=== PATIENT | male | born 1950 | race African-American/Black ===

== ENCOUNTER 2017-10-31 09:09 | Inpatient (IN) | payer MEDICARE ==
[2017-10-31] MEDS ORDERED: Heparin 10,000 UNITS/1 ML VIAL ONE (09:22)
[2017-10-31 09:35] LABS: #Eosinphils 0.1 thou/uL (0.0-0.7); #Lymphocytes 2.1 thou/uL (1.20-3.40); #Monocytes 0.8 thou/uL (0.11-0.59); #Neutrophils 4.9 thou/uL (1.40-6.50); %Basophils 0.4 % (0.0-1.0); %Eosinophils 0.8 % (0.0-10.0); %Lymphocytes 26.6 % (21.0-51.0); %Monocytes 10.2 % (0.0-10.0); Hemoglobin 10.1 g/dL (14.0-18.0); Mean Corpuscular HGB CONC 31.5 g/dL (32.0-36.0); Mean Corpuscular Hemoglobin 30.9 pg (27.0-31.0); Mean Corpuscular Volume 98.2 fL (78.0-98.0); Mean Platelet Volume 8.3 fL (7.4-10.4); Platelet Count 178 thou/uL (130-400); Red Blood Cell (RBC) Count 3.27 mill/uL (4.70-6.10); White Blood Cell (WBC) Count 7.9 thou/uL (4.8-10.8)
[2017-10-31] MEDS ORDERED: Midazolam HCl 2 mg/2 ml Vial ONE (09:46)
[2017-10-31 09:49] LABS: ALT (SGPT) Less than 7 U/L (8-55); AST (SGOT) 7 U/L (5-34); Albumin 3.7 g/dL (3.4-4.8); Alkaline Phosphatase 99 U/L (40-150); Anion Gap 16 mmol/L (10-20); BUN (Urea Nitrogen) 17 mg/dL (8.4-25.7); Bilirubin, Total 0.8 mg/dL (0.2-1.2); CK (CPK) 73 U/L (30-200); Calc. Creatinine Clearance 0 mL/min (70-130); Calcium 8.7 mg/dL (7.8-10.44); Carbon Dioxide 22 mmol/L (23-31); Chloride 99 mmol/L (98-107); Digoxin Less than 0.15 ng/mL (0.8-2.0); Estimated GFR-MDRD 32; Globulin 3.1 g/dL (2.4-3.5); Glucose 188 mg/dL (80-115); Lipase 8 U/L (8-78); Potassium 3.1 mmol/L (3.5-5.1); Protein, Total 6.8 g/dL (5.8-8.1); Sodium 134 mmol/L (136-145)
[2017-10-31] MEDS ORDERED: Nitroglycerin 50 MG/250 ML BOT 250 ML ONE (09:56)
[2017-10-31] MEDS ORDERED: Heparin 25,000 units/D5W 500 ML ONE (09:56)
[2017-10-31] MEDS ORDERED: traMADol HCl 50 MG TAB PO PRN (10:20)
[2017-10-31] MEDS ORDERED: Acetaminophen/Codeine 30-300mg Tablet PO PRN (10:20)
[2017-10-31] MEDS ORDERED: Nitroglycerin 0.4 MG TAB (25 Tab Bottle) SL PRN (10:20)
[2017-10-31 10:23] LABS: Troponin I 0.792 ng/mL (< 0.028)
[2017-10-31] MEDS ORDERED: Sodium Chloride 0.9% 1,000 ML IV SCH (10:30)
[2017-10-31] MEDS ORDERED: Sodium Chloride 0.9% 200 ML IV SCH (10:30)
[2017-10-31] MEDS ORDERED: Heparin 25,000 units/D5W 500 ML IVPB SCH (10:45)
[2017-10-31] MEDS ORDERED: Nitroglycerin 50 MG/250 ML BOT 250 ML IVPB SCH (10:45)
[2017-10-31 10:49] LABS: Cardiac Risk 2.3 (Less than 4.5)
[2017-10-31] MEDS ORDERED: Iopamidol 370 76% 100 ML VIAL ONE (11:05)
[2017-10-31] MEDS ORDERED: Iopamidol 370 76% 50 ML VIAL FS ONE (11:05)
--- NOTE | 2017-10-31 11:17 | HP ---
HISTORY OF PRESENT ILLNESS: Varun Gordon is a 66-year-old black male who was admitted through the emergency room with chest discomfort. In 07/2016 he was evaluated here for chest discomfort and seen by Dr. Rowland. He had a fixed defect involving the posterior wall and apex, but no ischemia. He then apparently was admitted in 07/2017 to [facility] with a myocardial infarction. He underwent cardiac catheterization and apparently just angioplasty was performed, no stent was placed according to the patient. He states that they were going to send him to [place] for bypass surgery; however, it sounds as if they were waiting for return of function of his transplanted kidney after his heart catheterization. He denies any chest discomfort after his myocardial infarction until now, although later when the arrived she stated he had been having chest pain. Apparently the pain today started at approximately 7 o'clock and would last intermittently until he arrived here at 9:00 o'clock. Upon arrival here, he denied any chest discomfort, but later while talking to him in the emergency room, stated that his chest pain seemed to be coming back. PAST MEDICAL HISTORY: Hypertension, diabetes, hypercholesterolemia, end-stage renal disease, status post transplant and now back on dialysis. MEDICATIONS: (Unverified). Amlodipine 10 at bedtime, aspirin 81 daily, Plavix 75 mg daily, atorvastatin 40 mg daily, calcium carbonate with vitamin D b.i.d., Catapres 0.2 b.i.d., cyclosporine 75 b.i.d., ferrous sulfate 325 daily, furosemide 40 daily, Apresoline 50 mg t.i.d., isosorbide mononitrate 60 daily, metoprolol 25 b.i.d., CellCept 750 b.i.d., Nitrostat p.r.n., NPH 8 units at bedtime, 30 units q.a.m., prednisone 5 mg daily. ALLERGIES: None. OPERATIONS: Renal transplant. SOCIAL HISTORY: He smoked many years ago, but not now. He does not drink. REVIEW OF SYSTEMS: Twelve point review of systems otherwise unremarkable except that the patient is blind. PHYSICAL EXAMINATION: VITAL SIGNS: Blood pressure 132/60, pulse of 80. HEENT: Blind in both eyes. NECK: Supple. CHEST: Clear. CARDIAC: S1, S2 normal, without any S3, S4 or murmurs. ABDOMEN: Normal bowel sounds, without tenderness or organomegaly. EXTREMITIES: Revealed 2+ pretibial edema. NEUROLOGIC: Grossly intact except for his eyesight. SKIN: Warm and dry. LABORATORY DATA: EKG shows new Q-waves V1-V4 from the EKG in 2017. There is approximately [address] segment elevation V1-V3. Also, on some EKGs there is ST elevation of 2 mm in lead 3. IMPRESSION: 1. Probable anterior ST-segment elevation myocardial infarction, questionable inferior ST segment elevation myocardial infarction. 2. History of previous myocardial infarction with percutaneous transluminal coronary angioplasty performed according to the patient's history in 07/2017. 3. Three-vessel disease according to the patient. 4. Hypertension. 5. Hypercholesterolemia. 6. Diabetes. 7. Status post renal transplant, which apparently was functioning until catheterization in 07/2017. He apparently still makes urine, but is undergoing dialysis 3 times a week. 8. Blindness. PLAN: The situation was discussed with patient and his . It was recommended he undergo cardiac catheterization. Risks of this were discussed including , myocardial infarction, dye reaction, vascular injury, CVA, transfusion, limb loss, possible further kidney damage, vascular injury, etc. Also, risk of PTCA and stent placement were discussed including , myocardial infarction, emergent CABG, restenosis, stent thrombosis, vessel perforation, etc. The patient and had trouble making a decision which delayed going to the wastewater analyst lab analyst, but ultimately decided to proceed. He is already on Plavix and if needed a drug eluting stent would be placed. [facility]OSPITALDemi
[2017-10-31 12:06] LABS: Hemoglobin 9.8 g/dL (14.0-18.0); Platelet Count 195 thou/uL (130-400)
--- NOTE | 2017-10-31 13:29 | CON ---
DATE OF CONSULTATION: 10/31/2017 REASON FOR CONSULTATION: Stage 6 chronic kidney disease, on maintenance hemodialysis. HISTORY OF PRESENT ILLNESS: This is a 66-year-old gentleman who was admitted with chest discomfort and had NSTEMI and CABG is planned. The patient had dialysis on Tuesday and remained hypokalemia. The patient denies headache, numbness, tingling or weakness. Denies any nausea, vomiting or chest pain, but remains dyspneic with swelling in his legs. PAST MEDICAL HISTORY: Significant for end-stage renal disease, hypertension, renal transplant, back on dialysis for the last ten months on chronic immunosuppressive therapy as well as history of coronary artery disease, CABG was planned. FAMILY HISTORY: Negative for end-stage renal disease. ALLERGIES: Reviewed. HOME MEDICATIONS: List reviewed. HOSPITAL MEDICATIONS: List reviewed. REVIEW OF SYSTEMS: A 15 point review of systems was performed and was negative except for positives noted above. GENERAL: Weakness-. HEAD: Headache-. NECK: No swelling or lumps. NOSE: No epistaxis or discharge. EYES: No diplopia or pain. RESPIRATORY: Dyspnea-. CARDIOVASCULAR: Chest pain-. GASTROINTESTINAL: Nausea-. /ANIMATION PRODUCER: Hematuria-. MUSCULOSKELETAL: No joint pain. NEUROPSYCHIATIC SYSTEMS: No suicidal ideation. No ideation. SKIN: Denies any rash or ulcer. CONSTITUTIONAL: No fever or chills. PHYSICAL EXAMINATION: GENERAL: The patient is awake, alert, in mild to moderate distress. VITAL SIGNS: Afebrile, pulse 80, breathing at 16, blood pressure 130/60. GENERAL APPEARANCE AND MENTAL STATUS: Fair. HEAD/NECK: Normocephalic. Atraumatic. EYES: EOMI. No deformity. EARS: Clear. No ulcers. NOSE: Intact. No lesions. MOUTH: Clear. No discharge. THROAT: Clear. No exudate. LUNGS: Clear. No crackles. CARDIAC: S1, S2. No rub. ABDOMEN: Benign. BS+. GENITALIA/RECTUM: Yuan absent. BACK/EXTREMITIES: Lower extremities has edema, Ulcer-. NEUROLOGICAL: Alert and motor intact. SKIN: Rash- Bruise- LYMPHATICS: Edema- Ulcer-. LABORATORY DATA: Show potassium 3.1, creatinine 2.4. ASSESSMENT: 1. Stage 6 chronic kidney disease with pulmonary edema. We will plan dialysis. 2. Hypertension, stable. 3. Anemia, stable. 4. Hypokalemia, use 4 K bath. 5. Myocardial infarction. Discussed the risks versus benefits of dialysis. I am planning hemodialysis to prevent progressive pulmonary edema and to avoid dialysis. The dialysis will be gentle. This was discussed with all teams and all the risks versus benefits of dialysis were explained to the patient and dialysis will be initiated. ROSSANA
[2017-10-31 13:45] LABS: HBSAg Index 0.25 S/CO (0-0.99); Hep B Surf Ag Non-Reactive S/CO (NonReactive)
--- NOTE | 2017-10-31 14:02 | CON ---
DATE OF CONSULTATION: 10/31/2017 REQUESTING PHYSICIAN: Dr. Juan Muhammad CHIEF COMPLAINT: Chest pain. HISTORY OF PRESENT ILLNESS: The patient is a 66-year-old black man who about 20 years ago underwent a renal transplantation. About a year ago he was seen with chest discomfort and at that time found t o have fixed defects in the posterior wall and the apex of his heart, but no evidence of ongoing isch emia. He apparently did well for about a year until this summer when he had a myocardial infarction. At that time he underwent cardiac catheterization at [facility] and according to patient's his tory underwent angioplasty without stenting with the plan to refer him to [place] for bypass surgery; however periprocedure his renal graft failed and he is currently dialyzing through a temporary cathet er on a 3 times a week schedule. He began having a stuttering pattern of chest pain about 7:00 o'nerissa ck this morning and that the pain was waxing and waning even while Dr. Muhammad was examining the pat ient. He is currently pain free. PAST MEDICAL HISTORY: Hypertension, diabetes, end-stage renal disease. He is essentially blind from diabetic retinopathy. MEDICATIONS: Norvasc 10 mg a day, Catapres 0.2 mg b.i.d., hydralazine 50 mg t.i.d., Isordil 60 mg a day, metoprolol 25 mg b.i.d., a baby aspirin a day, Plavix 75 mg a day, Lipitor 40 mg a day, NPH insu jt 8 units at bedtime and 30 units in the morning, CellCept 750 mg b.i.d., prednisone 5 mg a day, cy closporine 75 mg b.i.d., Lasix 40 mg a day, iron sulfate 325 mg a day, calcium carbonate with vitamin D supplements. ALLERGIES: The patient denies any medical allergies. SOCIAL HISTORY: He quit smoking many years ago. REVIEW OF SYSTEMS: Negative for any transient speech or extremity symptoms consistent with transient ischemic attacks. It is negative for any abdominal pain. PHYSICAL EXAMINATION: GENERAL: Black man in no distress. He is comfortable. VITAL SIGNS: He is 5 foot 11, weighs 241 pounds, heart rate 89, blood pressure 116/71. NECK: He has no carotid bruits. He has a dialysis catheter in place that most likely represents a t unneled IJ coming out the right subclavian area. LUNGS: He has clear breath sounds. CARDIOVASCULAR: Regular rate and rhythm. He has palpable radial pulses. ABDOMEN: He has a femoral sheath in place in the right groin. EXTREMITIES: He has nonpalpable pedal pulses. No clubbing, cyanosis or edema. LABORATORY DATA: White count of 7.9, hemoglobin 10.1, platelets 178,000. Potassium is 3.1 and gluco se 188, BUN 17, creatinine 2.47. LFTs were normal. Triglycerides 105, cholesterol 118, LDL 46, HDL 51. His initial troponin was 0.792. His cardiac catheterization shows a distal left main with invol vement of the ostium of the LAD with a proximal LAD aneurysm. He has a mid LAD lesion that is 90+ pe rcent and he has about a 90+ percent proximal circumflex lesion. His right coronary is occluded and fills by left to right collaterals. Echocardiography is pending. ASSESSMENT AND PLAN: Severe three-vessel coronary artery disease with left main involvement. I disc ussed with the patient potential issues concerning about open heart surgery affecting renal function. We will plan on dialysis today and perhaps tomorrow as well with surgery day after tomorrow assumin g he remains stable.
[2017-10-31] MEDS ORDERED: Insulin Regular 300 UNITS/3 ML VIAL SC PRN ×2 (14:32)
[2017-10-31] MEDS ORDERED: Dextrose 50% Abboject 50 ML SYRINGE SLOW IVP PRN (14:32)
[2017-10-31] MEDS ORDERED: Dextrose 5% in Water 1,000 ML IV PRN (14:32)
[2017-10-31] MEDS ORDERED: Acetaminophen 325 MG TAB PO PRN (14:33)
[2017-10-31] MEDS ORDERED: Sodium Chloride 0.65% Nasal 44 ML BOT EA NARE PRN (14:33)
[2017-10-31] MEDS ORDERED: hydrALAZINE 20 MG/ML VIAL SLOW IVP PRN (14:33)
[2017-10-31] MEDS ORDERED: Senokot 8.6 MG TAB PO PRN (14:33)
[2017-10-31] MEDS ORDERED: Milk Of Magnesia 30 ML UDCUP PO PRN (14:33)
[2017-10-31] MEDS ORDERED: Artificial Tears 18 DROP/0.9 ML EA EYE PRN (14:33)
[2017-10-31] MEDS ORDERED: Mag-Al 1200 mg/1200 mg/30 ML UDCUP PO PRN (14:33)
[2017-10-31] MEDS ORDERED: Eucerin (Mineral Oil/Petrolatum,White) 30 gm Jar TOP PRN (14:33)
[2017-10-31] MEDS ORDERED: Ondansetron ODT 4 MG TAB PO PRN (14:33)
[2017-10-31] MEDS ORDERED: Loperamide HCl 2 MG CAP PO PRN (14:33)
[2017-10-31] MEDS ORDERED: Diabetic Tussin 200 MG/10 ML UDCUP PO PRN (14:33)
[2017-10-31] MEDS ORDERED: Temazepam 15 MG CAP PO PRN (14:33)
[2017-10-31] MEDS ORDERED: Loratadine 10 MG TAB PO PRN (14:33)
--- NOTE | 2017-10-31 14:56 | CON ---
DATE OF CONSULTATION: 10/31/2017 PRIMARY CARE PHYSICIAN: [facility] call admission. PRIMARY NUCLEAR INSTRUCTOR: Dr. Pro. PRIMARY ATTENDING: Dr. Muhammad. REASON FOR CONSULTATION: Medical comanagement. HISTORY OF PRESENT ILLNESS: A 66-year-old -[place] male who has underlying history of diabet es type 2, hypertension, dyslipidemia as well as end-stage renal disease on hemodialysis. Patient wilkes s a remote history of renal transplant and he is started on dialysis for last 2 months. His nephrolo gist is Dr. Pro. Patient came to emergency room today with the complaint of chest pain. Patient 's chest pain was substernal, pressure-like sensation associated with nausea. He denies any vomiting . He denies any radiation of pain. Pain intensity was severe, which was started about 7:00 in the m orning. The patient came to emergency room. Subsequently, STEMI alert was initiated and patient had emergent cardiac catheterization by Dr. Muhammad. The patient was found with a left main and severe three-vessel coronary artery disease. The patient was not a candidate for any stent placement and t hat is why he was admitted in CCU and Cardiology recommended bypass surgery. The patient does have lower extremity edema which is gradually getting worse and he does have orthopn ea and dyspnea on exertion. This patient has a remote history of chest pain. At that time, he had a stress test done, which show ed fixed defect in 2016. Patient was also recently admitted at [facility] in July for suspected myocardial infarction. He underwent cardiac catheterization and angioplasty was performed. After t hat his kidney function deteriorated and required to start dialysis. PAST MEDICAL HISTORY: Diabetes type 2; hypertension; dyslipidemia; history of renal transplant; hist ory of ESRD, now on dialysis again; coronary artery disease; chronic congestive heart failure; legal blindness; anemia of renal disease; secondary hyperparathyroidism of renal origin. PAST SURGICAL HISTORY: Skin grafting, hemodialysis catheter placement, renal transplant. PAST PSYCHIATRIC HISTORY: Reviewed and negative. SOCIAL HISTORY: Patient is . His is present at bedside. No history of tobacco, alcohol or illicit drug abuse. He is an ex-smoker. FAMILY HISTORY: No strong family history of coronary artery disease, stroke or cancer. ALLERGIES: No known drug allergy. CURRENT HOME MEDICATIONS: Amlodipine 10 mg p.o. at bedtime, aspirin 81 mg p.o. daily, Lipitor 40 mg p.o. daily, calcium carbonate with vitamin D 1 tablet daily, vitamin D3 of 2000 units p.o. daily, nerissa nidine 0.2 mg p.o. b.i.d., cyclosporine 100 mg p.o. b.i.d., ferrous sulfate 325 mg p.o. daily, Imdur 20 mg p.o. daily, metoprolol 12.5 mg twice daily, CellCept 750 mg p.o. b.i.d., nitroglycerin 0.4 mg s ublingual as directed, Humulin N 30 units subcu daily and 8 units at bedtime, Protonix 40 mg p.o. xiao ly, prednisone 5 mg p.o. daily, Plavix 75 mg p.o. daily, hydralazine 50 mg t.i.d. REVIEW OF SYSTEMS: The following complete review of systems was negative, unless otherwise mentioned in the HPI or below: Constitutional: Weight loss or gain, ability to conduct usual activities. Sk in: Rash, itching. Eyes: Double vision, pain. ENT/Mouth: Nose bleeding, neck stiffness, pain, te nderness. Cardiovascular: Palpitations, dyspnea on exertion, orthopnea. Respiratory: Shortness of breath, wheezing, cough, hemoptysis, fever or night sweats. Gastrointestinal: Poor appetite, abdom inal pain, heartburn, nausea, vomiting, constipation, or diarrhea. Genitourinary: Urgency, frequenc y, dysuria, nocturia. Musculoskeletal: Pain, swelling. Neurologic/Psychiatric: Anxiety, depressio n. Allergy/Immunologic: Skin rash, bleeding tendency. Please see my HPI for pertinent positive and negative. All other review of systems reviewed and nega tive except as mentioned in the HPI. EMERGENCY ROOM COURSE: Reviewed. HOSPITAL COURSE: Reviewed. PHYSICAL EXAMINATION: VITAL SIGNS: Currently, blood pressure 140/95, pulse 99, respiratory rate 20, temperature 98.0, satu ration 99% on room air, weight 109.3 kilograms. GENERAL: The patient is currently alert, awake, in no obvious acute distress. Patient is legally bl ind. HEAD: Normocephalic, atraumatic. EYES: Patient is legally blind. ENT: Oropharynx within normal limits. Moist mucous membranes. No oral lesion, no pharyngeal erythe ma, no exudate. NECK: Supple, no JVD, no thyromegaly, no carotid bruit. LUNGS: Patient does have few basilar rales noted. Dialysis catheter on the right anterior chest. N o wheezing, no accessory muscles of respiration in use. CARDIAC: S1, S2 appears regular. No gross murmur elicited, no gallop, no rub. ABDOMEN: Obesity present. Bowel sounds present, nontender, nondistended. No organomegaly, no mass, no suprapubic tenderness. BACK: Unremarkable, no CVA tenderness. EXTREMITIES: Upper extremity, left arm as possible AV fistula or graft. Right upper extremity withi n normal limit. Bilateral lower extremity edema noted. Good distal pulsation. SKIN: Skin grafting noted in past. NEUROLOGIC: Nonfocal examination. He is moving all four limbs. Speech normal. PSYCHIATRIC: Normal affect. SIGNIFICANT LABORATORY DATA: EKG showing premature ventricular complexes, fusion complexes, anterose ptal IA. CBC: WBC 7.9, hemoglobin 9.8, platelet 195. BMP: Sodium 134, potassium 3.1, chloride 99, carbon dioxide 22, anion gap 16, BUN 17, creatinine 2.47, glucose 188, calcium 8.7. LFT: AST 7, AL T less than 7, alkaline phosphatase 99, albumin 3.7. CK 73, CK-MB 2.0, troponin I 0.792. Lipid prof ile: Triglyceride of 105, cholesterol 118, LDL 46, HDL 51, lipase 8. CK 73, CK-MB 2.0, troponin I 0 .792, albumin 3.7. Digoxin level less than 0.15. Hepatitis B surface antigen negative. Cardiac cat heterization showed left main and three-vessel coronary artery disease. ASSESSMENT AND PLAN/IMPRESSION: 1. Acute myocardial infarction, status post cardiac catheterization and found with a left main and 3 -vessel coronary artery disease. The patient will require a coronary artery bypass graft. A CT surg qi already consulted. Currently, patient is on heparin drip and nitroglycerin drip. Management amanda l defer to primary team, crnp as well as cardiovascular surgeon team. The patient will need a bypass grafting. We will continue Ecotrin 81 mg p.o. daily, Lipitor 40 mg p.o. at bedtime. 2. Hypertension. We will continue amlodipine 10 mg p.o. daily along with other blood pressure medic ation. 3. Dyslipidemia. Continue Lipitor 40 mg p.o. daily. His lipid profile is at target. 4. End-stage renal disease on hemodialysis. Patient will need hemodialysis because patient appears to be in volume overloaded. Nephrology already consulted. The patient is planned for dialysis. 5. History of renal transplant. Patient is on immunosuppressive medication. We will continue cyclo sporine 100 mg p.o. b.i.d., CellCept 750 mg p.o. b.i.d., prednisone 5 mg p.o. daily. 6. Diabetes type 2. We will continue Humulin N 30 units subcu daily and 8 units subcu at bedtime, h uman regular insulin as per sliding scale protocol. 7. Gastroesophageal reflux disease. We will continue Protonix 40 mg p.o. daily. 8. Deep venous thrombosis prophylaxis. Patient is already on a heparin drip. 9. Gastrointestinal prophylaxis, Protonix 40 mg p.o. daily. 10. Anemia of renal disease. We will continue Nephro-Rico one tablet p.o. daily. Procrit with dial ysis as needed. 11. Code status: The patient is FULL CODE. The patient's is surrogate decision maker. Disposition plan based on clinical course. We are expecting patient's stay in hospital more than 2 m idnights. Plan of care discussed with the patient and his at bedside. Thank you for the consult. We will follow up with you while in hospital.
[2017-10-31 15:46] LABS: CKMB 11.8 ng/mL (0-6.6); Troponin I 1.496 ng/mL (< 0.028)
[2017-10-31] MEDS: Ondansetron HCl/PF 4 MG/2 ML Vial IVP PRN (18:00)
[2017-10-31 18:45] LABS: PTT 125.9 SEC (22.9-36.1)
--- NOTE | 2017-10-31 19:31 | ULT ---
RENAL ULTRASOUND: HISTORY: Transplanted right kidney. Acute kidney insufficiency. COMPARISON: None. According to the zyglo inspector, the patient's nurse states that there are prior images available at [facility]. TECHNIQUE: Caceres-scale, color-flow, Doppler imaging, and spectral wave-form analysis was performed of the transpl anted kidney. FINDINGS: The transplanted kidney has a heterogeneous echotexture. No obvious hydronephrosis. There is mild r enal cortical thinning. The right kidney measures 5.9 x 4.9 x 10.3 cm. The rampart right kidney is diminutive. Transplanted kidney Doppler shows peak systolic velocities of 2 and 24.2 cm per second, at the level of the renal pelvis. The right renal artery, near the superior pole, has a velocity of 32.1 cm per s econd. The right renal artery, at the level of the mid pole, has a velocity of 113.3 cm per second. The right renal artery, at the lower pole, has a velocity of 50.9 cm per second. The right renal ve in appears to be patent. IMPRESSION: 1. Suboptimal renal Doppler. Examination can be repeated when the patient is able to cooperate. Th e patient was unable to move, roll, or follow reading cues. 2. Heterogeneous echotexture of the transplanted right kidney. Correlate clinically. 3. No evidence of hydronephrosis, in terms of the transplanted right kidney. POS: ANNALISE
[2017-10-31] MEDS: Amlodipine 10 MG TAB PO SCH (21:21)
[2017-10-31] MEDS: Atorvastatin Calcium 40 MG TAB PO SCH (21:22)
[2017-10-31] MEDS: cycloSPORINE, Modified 25 MG CAP PO SCH (21:22)
[2017-10-31] MEDS: Metoprolol Tartrate 25 MG TAB PO SCH (21:23)
[2017-10-31] MEDS: Mycophenolate 250 MG CAP PO SCH (21:24)
[2017-10-31] MEDS: Acetaminophen/Codeine 30-300mg Tablet PO PRN (21:24)
[2017-10-31] MEDS: NPH, Human Insulin Isophane 300 UNIT/3 ML VIAL SC SCH (21:25)
--- NOTE | 2017-10-31 22:30 | CON ---
DATE OF CONSULTATION: 10/31/2017 HISTORY OF PRESENT ILLNESS: Mr. Gordon is a 66-year-old male, who was admitted with chest discomfort. He has a history of coronary artery disease. He recently had undergone cardiac catheterization at [facility], which led to an angioplasty, bu t no stent. Apparently, they were talking about sending Mr. Gordon to [place] for bypass surgery. He had a renal t ransplant that failed after his cardiac catheterization. He subsequently is admitted here with chest discomfort. He is in the ICU for further evaluation. PAST MEDICAL HISTORY: Remarkable for hypertension, diabetes for many years, lipid disorder, status p ost renal transplant, now with a tunneled dialysis catheter in place. SOCIAL HISTORY: He is a former smoker, does not drink. ALLERGIES: He reports no drug allergies. REVIEW OF SYSTEMS: A 10-point is otherwise negative. PHYSICAL EXAMINATION: GENERAL: He says he is feeling well. His is a patient of mine, who is at the bedside. VITAL SIGNS: Heart rate is 87, blood pressure 113/76, respiratory rate is 20, oximetry is 100%. HEENT: Pupils are equal. Sclerae is anicteric. NECK: Supple. LUNGS: Clear. HEART: Regular rhythm. ABDOMEN: Soft and nontender. EXTREMITIES: Warm. LABORATORY DATA: Hemoglobin is 9.8, white count 7.9, platelets 178. Sodium 134, potassium 3.1, chlo ride 99, bicarbonate 22, BUN 70, creatinine 2.47. IMPRESSION: 1. Coronary artery disease. 2. Recent cardiac catheterization. 3. Status post renal transplantation with renal failure, now on dialysis. 4. Obesity. 5. Longstanding diabetes. 6. History of lipid disorder. 7. Legal blindness secondary to diabetes. PLAN: Continue supportive care. During his cardiac workup, apparently Cardiothoracic Surgery has be en consulted. This is a 50-minute consult, greater than 50% of the time was spent in coordinating ca re.
[2017-10-31 22:31] LABS: CKMB 39.4 ng/mL (0-6.6); Troponin I 4.312 ng/mL (< 0.028)
[2017-11-01] MEDS: Ondansetron HCl/PF 4 MG/2 ML Vial IVP PRN (01:36)
[2017-11-01] MEDS: Heparin 10,000 UNITS/ 10 ML VIAL SLOW IVP SCH ×2 (06:34→16:15)
[2017-11-01] MEDS ORDERED: Communication Order-Pharmacy FS SCH (07:25)
[2017-11-01] MEDS ORDERED: Clopidogrel Bisulfate 75 MG TAB PO SCH (09:00)
[2017-11-01] MEDS ORDERED: Promethazine HCl 25 MG/ML VIAL IM/IV PRN (09:50)
--- NOTE | 2017-11-01 09:55 | PDOC.PN ---
- Subjective Encounter Start Date: 11/01/17 Encounter Start Time: 09:45 -: old records requested/rev pt denies chest pain, he is getting HD, less edema leg, less dyspnea has post nasal drip and has nausea, zofran not helping - Objective Resuscitation Status: Resuscitation Status FULL:Full Resuscitation MAR Reviewed: Yes Vital Signs & Weight: Vital Signs (12 hours) Temp Pulse Ox 11/01/17 07:18 100 11/01/17 04:00 98.1 F 11/01/17 00:00 98.2 F Weight Weight 259 lb 4.218 oz Most Recent Monitor Data Heart Rate from ECG 89 NIBP 123/81 NIBP BP-Mean 95 Respiration from ECG 16 SpO2 98 I&O: 10/31/17 11/01/17 11/02/17 06:59 06:59 06:59 Intake Total 2899.0 Output Total 200 Balance 2699.0 Result Diagrams: 10/31/17 11:56 10/31/17 09:24 Additional Labs: Accuchecks 11/01/17 10/31/17 10/31/17 05:14 21:20 16:39 POC Glucose 151 H 168 H 181 H Radiology Reviewed by me: Yes (echo report reviewed, noted low EF) EKG Reviewed by me: Yes (nsr) Phys Exam - Physical Examination Constitutional: NAD HEENT: moist MMs, sclera anicteric Neck: no JVD, supple Respiratory: no wheezing, no rales, no rhonchi Cardiovascular: RRR, no rub SM+ Gastrointestinal: soft, non-tender, no distention, positive bowel sounds Musculoskeletal: pulses present, edema present right groin femoral central line Neurological: non-focal, normal sensation Lymphatic: no nodes Psychiatric: normal affect, A&O x 3 Skin: no rash, normal turgor Dx/Plan (1) Acute myocardial infarction Code(s): I21.9 - ACUTE MYOCARDIAL INFARCTION, UNSPECIFIED Status: Acute Comment: s/p cardiac cath (2) Acute on chronic systolic ACC/AHA stage C congestive heart failure Code(s): I50.23 - ACUTE ON CHRONIC SYSTOLIC (CONGESTIVE) HEART FAILURE Status : Acute (3) Anemia of renal disease Code(s): D63.1 - ANEMIA IN CHRONIC KIDNEY DISEASE Status: Acute (4) Secondary hyperparathyroidism of renal origin Code(s): N25.81 - SECONDARY HYPERPARATHYROIDISM OF RENAL ORIGIN Status: Acute (5) DM type 2 (diabetes mellitus, type 2) Status: Chronic Qualifiers: Diabetes mellitus salvage determiner insulin use: with correction use Diabetes mellitus complication detail: with chronic kidney disease Chronic kidney disease stage: stage 3 (moderate) (6) Dyslipidemia Code(s): E78.5 - HYPERLIPIDEMIA, UNSPECIFIED Status: Chronic (7) GERD (gastroesophageal reflux disease) Code(s): K21.9 - GASTRO-ESOPHAGEAL REFLUX DISEASE WITHOUT ESOPHAGITIS Status: Chronic (8) H/O kidney transplant Status: Chronic (9) HTN (hypertension) Code(s): I10 - ESSENTIAL (PRIMARY) HYPERTENSION Status: Chronic Qualifiers: Hypertension type: essential hypertension Qualified Code(s): I10 - Essential (primary) hypertension (10) Ischemic cardiomyopathy Code(s): I25.5 - ISCHEMIC CARDIOMYOPATHY Status: Chronic (11) Moderate mitral regurgitation Code(s): I34.0 - NONRHEUMATIC MITRAL (VALVE) INSUFFICIENCY Status: Chronic (12) Multi-vessel coronary artery stenosis Code(s): I25.10 - ATHSCL HEART DISEASE OF [place] CORONARY ARTERY W/O ANG PCTRS Status: Chronic (13) Obesity (BMI 30-39.9) Code(s): E66.9 - OBESITY, UNSPECIFIED Status: Chronic - Plan cont current plan of care * currently on heparin drip * continue nitro drip * continue HD * plan for CABG may be tomorrow * medication reviewed as below * symptomatic treatment * add phenergan and flonase * continue home medication. Review of Systems - Review of Systems Constitutional: negative: fever, chills, sweats, weakness, malaise, other ENT: negative: Ear Pain, Ear Discharge, Nose Pain, Nose Discharge, Nose Congestion, Mouth Pain, Mouth Swelling, Throat Pain, Throat Swelling, Other Respiratory: negative: Cough, Dry, Shortness of Breath, Hemoptysis, SOB with Excertion, Pleuritic Pain, Sputum, Wheezing Cardiovascular: edema. negative: chest pain, palpitations, orthopnea, paroxysmal nocturnal dyspnea, light headedness, other Gastrointestinal: Nausea. negative: Vomiting, Abdominal Pain, Diarrhea, Constipation, Melena, Hematochezia, Other Genitourinary: negative: Dysuria, Frequency, Incontinence, Hematuria, Retention , Other Musculoskeletal: negative: Neck Pain, Shoulder Pain, Arm Pain, Back Pain, Hand Pain, Leg Pain, Foot Pain, Other Skin: negative: Rash, Lesions, Evelio, Bruising, Other - Medications/Allergies Allergies/Adverse Reactions: Allergies Allergy/AdvReac Type Severity Reaction Status Date / Time No Known Allergies Allergy Verified 10/31/17 12:56 Medications: Current Medications Acetaminophen (Tylenol) 650 mg PO Q4H PRN PRN Reason: Headache/Fever or Mild Pain Acetaminophen/Codeine Phosphate (Tylenol #3) 1 tab PO Q4H PRN PRN Reason: Mild Pain (1-3) Acetaminophen/Codeine Phosphate (Tylenol #3) 2 tab PO Q4H PRN PRN Reason: Moderate Pain (4-6) Last Admin: 10/31/17 21:24 Dose: 2 tab Al Hydroxide/Mg Hydroxide (Maalox) 15 ml PO Q4H PRN PRN Reason: Heartburn or Indigestion Amlodipine Besylate (Norvasc) 10 mg PO HS [facility] Last Admin: 10/31/17 21:21 Dose: 10 mg Artificial Tears (Tears Naturale) 0 drop EA EYE PRN PRN PRN Reason: Dry Eyes Aspirin (Ecotrin) 81 mg PO DAILY [facility] Atorvastatin Calcium (Lipitor) 40 mg PO [facility] Last Admin: 10/31/17 21:22 Dose: Not Given Calcium/Vitamin D (Caltrate 600 + Vit D) 1 tab PO DAILY [facility] Cholecalciferol (Vitamin D3) 2,000 units PO DAILY [facility] Cyclosporine (Neoral) 100 mg PO BID [facility] Last Admin: 10/31/17 21:22 Dose: 100 mg Dextrose/Water (Dextrose 50%) 25 gm SLOW IVP PRN PRN PRN Reason: Hypoglycemia Fluticasone Propionate (Flonase Nasal [place]) 0 gm NASAL DAILY [facility] Glucagon (Glucagon) 1 mg IM PRN PRN PRN Reason: Hypoglycemia Guaifenesin (Robitussin Sf) 200 mg PO Q4H PRN PRN Reason: Cough Heparin Sodium (Porcine) (Heparin 1,000 Units/Ml (10 Ml)) 0 units SLOW IVP ASDIR [facility]; Protocol Last Admin: 11/01/17 06:34 Dose: 3,528 unit Hydralazine HCl (Apresoline) 10 mg SLOW IVP Q4H PRN PRN Reason: Systolic BP > 180 Heparin Sodium/Dextrose (Heparin 25,000 Units/D5w 500 Ml) 500 mls @ 0 mls/hr IVPB INF [facility]; Protocol Nitroglycerin/Dextrose (Nitroglycerin 50 Mg/250 Ml Bot) 250 mls @ 0 mls/hr IVPB INF [facility]; Protocol Dextrose/Water (D5w) 1,000 mls @ 0 mls/hr IV .Q0M PRN PRN Reason: Hypoglycemia Vancomycin HCl 1 gm/ Device 200 mls @ 200 mls/hr IVPB ONE [facility] Stop: 11/02/17 21:00 Insulin Human NPH (Humulin N) 30 unit SC DAILY [facility] Insulin Human NPH (Humulin N) 8 unit SC HS [facility] Last Admin: 10/31/17 21:25 Dose: 4 unit Insulin Human Regular (Humulin R) 0 units SC .MODERATE SLIDING SC PRN PRN Reason: Moderate Correctional Scale Insulin Human Regular (Humulin R) 0 units SC .BEDTIME SLIDING SC PRN PRN Reason: Bedtime Correctional Scale Loperamide HCl (Imodium) 2 mg PO PRN PRN PRN Reason: Diarrhea/Loose Stools Loratadine (Claritin) 10 mg PO DAILYPRN PRN PRN Reason: Sinus Symptoms Magnesium Hydroxide (Milk Of Magnesium) 30 ml PO DAILYPRN PRN PRN Reason: Constipation Metoprolol Tartrate (Lopressor) 12.5 mg PO BID [facility] Mineral Oil/White Petrolatum (Eucerin Cream) 0 gm TOP BIDPRN PRN PRN Reason: Dry Skin Miscellaneous Information (Communication Order-Pharmacy) 1 each FS ASDIR [facility] Morphine Sulfate (Morphine) 2 mg SLOW IVP Q1H PRN PRN Reason: Pain Last Admin: 11/01/17 06:55 Dose: 2 mg Mycophenolate Mofetil (Cellcept) 750 mg PO BID [facility] Last Admin: 10/31/17 21:24 Dose: 750 mg Nitroglycerin (Nitrostat) 0.4 mg SL Q5MIN PRN PRN Reason: Chest Pain Ondansetron HCl (Zofran Odt) 4 mg PO Q6H PRN PRN Reason: Nausea/Vomiting Ondansetron HCl (Zofran) 4 mg IVP Q6H PRN PRN Reason: Nausea/Vomiting Last Admin: 11/01/17 01:36 Dose: 4 mg Pantoprazole Sodium (Protonix) 40 mg PO DAILY [facility] Prednisone (Prednisone) 5 mg PO DAILY [facility] Promethazine HCl (Phenergan) 12.5 mg IM/IV Q6H PRN PRN Reason: Nausea/Vomiting Senna (Senokot) 2 tab PO HSPRN PRN PRN Reason: Constipation Sodium Chloride (Flush - Normal Saline) 10 ml IVF Q12HR [facility] Last Admin: 10/31/17 21:25 Dose: 10 ml Sodium Chloride (Flush - Normal Saline) 10 ml IVF PRN PRN PRN Reason: Saline Flush Sodium Chloride ([place] Nasal [place] 0.65%) 0 ml EA NARE QIDPRN PRN PRN Reason: Nasal Congestion Temazepam (Restoril) 15 mg PO HSPRN PRN PRN Reason: Insomnia Tramadol HCl (Ultram) 50 mg PO Q6H PRN PRN Reason: Moderate Pain (4-6)
[2017-11-01] MEDS ORDERED: Metoclopramide HCl 10 MG/2 ML VIAL IVP SCH (11:15)
[2017-11-01] MEDS: Aspirin 81 mg Enteric Coated Tablet PO SCH (11:17)
[2017-11-01] MEDS: Calcium Carbonate + Vit D 1 TAB PO SCH (11:18)
[2017-11-01] MEDS: cycloSPORINE, Modified 25 MG CAP PO SCH ×2 (11:20→22:17)
[2017-11-01] MEDS: Mycophenolate 250 MG CAP PO SCH ×2 (11:22→21:58)
[2017-11-01] MEDS: predniSONE 5 MG TAB PO SCH (11:23)
[2017-11-01] MEDS: Fluticasone Propionate Nasal Spray 16 gm Bottle NASAL SCH (11:24)
[2017-11-01] MEDS: NPH, Human Insulin Isophane 300 UNIT/3 ML VIAL SC SCH ×2 (11:53→21:56)
[2017-11-01] MEDS: Acetaminophen/Codeine 30-300mg Tablet PO PRN (11:55)
[2017-11-01] MEDS: Metoprolol Tartrate 25 MG TAB PO SCH ×2 (12:19→21:56)
[2017-11-01 13:08] LABS: PTT 151.9 SEC (22.9-36.1)
--- NOTE | 2017-11-01 14:36 | PRG ---
DATE OF SERVICE: 11/01/2017 SUBJECTIVE: Mr. Gordon has no new complaints. PHYSICAL EXAMINATION: VITAL SIGNS: His heart rate 92, blood pressure 103/64, respiratory rate was in the teens. He still has a sheath in place, still anticoagulated. LUNGS: Clear. HEART: Regular rhythm. ABDOMEN: Soft. LABORATORY DATA: Hemoglobin is stable at 9.8 yesterday. There is no lab today. IMPRESSION: 1. End-stage renal disease. 2. Coronary artery disease with myocardial infarction, waiting CT surgery evaluation. 3. Anticoagulation. 4. Legal blindness. 5. Diabetes. 6. Depressed left ventricular systolic function with an ejection fraction of 25%-30% with moderate m itral regurgitation. PLAN: Continue to follow along with the student advisor. He will remain in the critical care unit for now.
--- NOTE | 2017-11-01 14:38 | PRG ---
DATE OF SERVICE: 11/01/2017 SUBJECTIVE: This is a 66-year-old gentleman being seen for end-stage renal disease. The patient den ies any nausea, vomiting, or chest pain. PHYSICAL EXAMINATION: GENERAL: Patient is awake, alert. VITAL SIGNS: Afebrile, pulse 100, breathing 16, blood pressure 131/60. HEAD/NECK: Normocephalic. Atraumatic. EYES: EOMI. No deformity. EARS: Clear. No ulcers. NOSE: Intact. No lesions. MOUTH: Clear. No discharge. THROAT: Clear. No exudate. LUNGS: Clear. No crackles. CARDIAC: S1, S2. No rub. ABDOMEN: Benign. BS+. GENITALIA/RECTUM: Yuan absent. BACK/EXTREMITIES: Edema 0+ Ulcer- NEUROLOGICAL: Alert and motor intact. SKIN: Rash- Bruise- LYMPHATICS: Edema- Ulcer- LABORATORY DATA: Show hemoglobin 9.8. ASSESSMENT AND RECOMMENDATIONS: 1. Stage 6 chronic kidney disease. Continue hemodialysis. 2. Hypertension, stable. 3. Anemia, stable. 4. Medications based on glomerular filtration rate are appropriate 5. Myocardial infarction. Management per primary team. Coronary artery bypass grafting planned.
[2017-11-01] MEDS: Metoclopramide HCl 10 MG/2 ML VIAL IVP SCH ×2 (14:57→21:56)
--- NOTE | 2017-11-01 16:16 | RAD ---
SEMIUPRIGHT CHEST ONE VIEW: 11/01/17 HISTORY: 66-year-old male with history of chest pain, preoperative coronary artery bypass graft. COMPARISON: 08/05/16. FINDINGS: Right dual lumen venous access catheter. Old granulomatous disease. Cardiomegaly with mild bilateral vascular congestion. No confluent pneumonia, overt edema, or pleural effusion. IMPRESSION: Cardiomegaly with mild vascular congestion. Right dual lumen venous access catheter. No confluent pne umonia. POS: [facility]
[2017-11-01] MEDS: Amlodipine 10 MG TAB PO SCH (21:57)
[2017-11-01] MEDS: Atorvastatin Calcium 40 MG TAB PO SCH (21:57)
[2017-11-01 22:29] LABS: PTT 139.5 SEC (22.9-36.1)
[2017-11-02 01:05] LABS: PTT 138.1 SEC (22.9-36.1)
[2017-11-02 05:14] LABS: Anion Gap 14 mmol/L (10-20); BUN (Urea Nitrogen) 10 mg/dL (8.4-25.7); Calc. Creatinine Clearance 49 mL/min (70-130); Calcium 8.4 mg/dL (7.8-10.44); Carbon Dioxide 26 mmol/L (23-31); Chloride 100 mmol/L (98-107); Estimated GFR-MDRD 33; Glucose 99 mg/dL (80-115); Potassium 3.6 mmol/L (3.5-5.1); Sodium 136 mmol/L (136-145)
[2017-11-02] MEDS: Metoprolol Tartrate 25 MG TAB PO SCH (05:23)
[2017-11-02] MEDS: Metoclopramide HCl 10 MG/2 ML VIAL IVP SCH (05:23)
[2017-11-02 05:30] LABS: Band 1 % (5-11); Hemoglobin 9.8 g/dL (14.0-18.0); Hypochromia SLIGHT = 6-15 cells (100X) (0-5/hpf); Lymphocytes 11 % (21-51); MDiff Complete? YES; Mean Corpuscular HGB CONC 32.3 g/dL (32.0-36.0); Mean Corpuscular Hemoglobin 31.7 pg (27.0-31.0); Mean Corpuscular Volume 98.2 fL (78.0-98.0); Mean Platelet Volume 8.2 fL (7.4-10.4); Monocytes 7 % (0-10); Neutrophil 81 % (42-75); PLT Morphology Comment Appears Adequate; Platelet Count 192 thou/uL (130-400); RBC Distribution Width 13.2 % (11.5-14.5); Red Blood Cell (RBC) Count 3.09 mill/uL (4.70-6.10); White Blood Cell (WBC) Count 8.1 thou/uL (4.8-10.8)
[2017-11-02] MEDS ORDERED: Albumin 5% 500 ML ONE (05:49)
[2017-11-02] MEDS ORDERED: Heparin 10,000 UNITS/1 ML VIAL 30,000 UNITS in Sodium Chloride 0.9% 1,000 ML FS SCH (06:15)
[2017-11-02] MEDS ORDERED: Fentanyl 250 MCG/5 ML VIAL ONE ×2 (06:18)
[2017-11-02] MEDS ORDERED: Midazolam HCl 2 mg/2 ml Vial ONE (06:19)
[2017-11-02] MEDS ORDERED: CABG-Vancomycin 1 GM in Premix Bag 1 BAG IVPB SCH (06:30)
--- NOTE | 2017-11-02 08:33 | RAD ---
PORTABLE CHEST: DATE: 11/02/17. PROVIDED CLINICAL HISTORY: Chest pain. FINDINGS/IMPRESSION: Comparison is made with the study dated 11/01/17. Significant interval change with respect to the prior examination is not apparent. Changes of conges tive failure are again suggested. POS: [facility]
[2017-11-02] MEDS ORDERED: Clopidogrel Bisulfate 75 MG TAB ONE (08:52)
[2017-11-02] MEDS ORDERED: Nitroglycerin 50 MG/250 ML BOT 250 ML IVPB PRN (09:39)
[2017-11-02] MEDS ORDERED: Acetaminophen 325 MG TAB PO PRN (09:39)
[2017-11-02] MEDS ORDERED: Guaifenesin DM 100-10/5 ML UDCUP PO PRN (09:39)
[2017-11-02] MEDS ORDERED: Mag-Al 1200 mg/1200 mg/30 ML UDCUP PO PRN (09:39)
[2017-11-02] MEDS ORDERED: Fentanyl 100 MCG/2 ML VIAL SLOW IVP PRN ×2 (09:39)
[2017-11-02] MEDS ORDERED: Bisacodyl 5 MG TAB PO PRN (09:39)
[2017-11-02] MEDS ORDERED: Post-Op Insulin Drip Protocol IVPB ONE (09:39)
[2017-11-02] MEDS ORDERED: Ondansetron HCl/PF 4 MG/2 ML Vial IVP PRN (09:39)
[2017-11-02] MEDS ORDERED: HYDROcodone/Acetaminophen 5/325 mg Tablet PO PRN ×2 (09:39)
[2017-11-02] MEDS ORDERED: Potassium Chloride 20 MEQ/100 ML PREMIX BAG IVPB PRN (09:39)
[2017-11-02] MEDS ORDERED: Bisacodyl 10 MG SUPP PR PRN (09:39)
[2017-11-02] MEDS ORDERED: Hetastarch 6% 500 ML 500 ML IVPB PRN (09:39)
[2017-11-02] MEDS ORDERED: Promethazine HCl 25 MG/ML VIAL IM PRN (09:39)
[2017-11-02] MEDS ORDERED: Dextrose 50% Abboject 50 ML SYRINGE SLOW IVP PRN (10:20)
[2017-11-02] MEDS ORDERED: Dextrose 5% in Water 1,000 ML IV PRN (10:20)
--- NOTE | 2017-11-02 11:51 | PDOC.PN ---
- Subjective Encounter Start Date: 11/02/17 Encounter Start Time: 06:45 - Objective Resuscitation Status: Resuscitation Status FULL:Full Resuscitation MAR Reviewed: Yes Vital Signs & Weight: Vital Signs (12 hours) Temp Pulse Ox 11/02/17 07:20 97 11/02/17 04:00 98.8 F 11/02/17 00:00 98.4 F Weight Admit Weight 259 lb 4.218 oz Weight 248 lb 10.903 oz Most Recent Monitor Data Heart Rate from ECG 85 NIBP 131/99 NIBP BP-Mean 109 Respiration from ECG 18 SpO2 99 I&O: 11/01/17 11/02/17 11/03/17 06:59 06:59 06:59 Intake Total 2899.0 919.5 Output Total 200 Balance 2699.0 919.5 Result Diagrams: 11/02/17 04:42 11/02/17 04:42 Additional Labs: Accuchecks 11/02/17 11/02/17 11/02/17 11:17 10:36 08:37 POC Glucose 98 89 90 11/01/17 11/01/17 21:53 17:05 POC Glucose 100 95 EKG Reviewed by me: Yes (NSR) Phys Exam - Physical Examination Constitutional: NAD HEENT: PERRLA, moist MMs, sclera anicteric Neck: no JVD, supple Respiratory: no wheezing, no rales, no rhonchi HD catheter+ Cardiovascular: RRR, no significant murmur, no rub Gastrointestinal: soft, non-tender, no distention, positive bowel sounds Musculoskeletal: edema present Neurological: non-focal, normal sensation Psychiatric: normal affect, A&O x 3 Skin: no rash, normal turgor Dx/Plan (1) Acute myocardial infarction Code(s): I21.9 - ACUTE MYOCARDIAL INFARCTION, UNSPECIFIED Status: Acute Comment: s/p cardiac cath (2) Acute on chronic systolic ACC/AHA stage C congestive heart failure Code(s): I50.23 - ACUTE ON CHRONIC SYSTOLIC (CONGESTIVE) HEART FAILURE Status : Acute (3) Anemia of renal disease Code(s): D63.1 - ANEMIA IN CHRONIC KIDNEY DISEASE Status: Acute (4) Secondary hyperparathyroidism of renal origin Code(s): N25.81 - SECONDARY HYPERPARATHYROIDISM OF RENAL ORIGIN Status: Acute (5) DM type 2 (diabetes mellitus, type 2) Status: Chronic Qualifiers: Diabetes mellitus prison insulin use: with prison use Diabetes mellitus complication detail: with chronic kidney disease Chronic kidney disease stage: stage 3 (moderate) (6) Dyslipidemia Code(s): E78.5 - HYPERLIPIDEMIA, UNSPECIFIED Status: Chronic (7) GERD (gastroesophageal reflux disease) Code(s): K21.9 - GASTRO-ESOPHAGEAL REFLUX DISEASE WITHOUT ESOPHAGITIS Status: Chronic (8) H/O kidney transplant Status: Chronic (9) HTN (hypertension) Code(s): I10 - ESSENTIAL (PRIMARY) HYPERTENSION Status: Chronic Qualifiers: Hypertension type: essential hypertension Qualified Code(s): I10 - Essential (primary) hypertension (10) Ischemic cardiomyopathy Code(s): I25.5 - ISCHEMIC CARDIOMYOPATHY Status: Chronic (11) Moderate mitral regurgitation Code(s): I34.0 - NONRHEUMATIC MITRAL (VALVE) INSUFFICIENCY Status: Chronic (12) Multi-vessel coronary artery stenosis Code(s): I25.10 - ATHSCL HEART DISEASE OF [place] CORONARY ARTERY W/O ANG PCTRS Status: Chronic (13) Obesity (BMI 30-39.9) Code(s): E66.9 - OBESITY, UNSPECIFIED Status: Chronic - Plan cont current plan of care * today plan for CABG * after CABG continue post CABG protocol treatment as per cardiology and CT surgeon * medication reviewed as below * symptomatic treatment. Review of Systems - Review of Systems ENT: negative: Ear Pain, Ear Discharge, Nose Pain, Nose Discharge, Nose Congestion, Mouth Pain, Mouth Swelling, Throat Pain, Throat Swelling, Other Respiratory: negative: Cough, Dry, Shortness of Breath, Hemoptysis, SOB with Excertion, Pleuritic Pain, Sputum, Wheezing Cardiovascular: negative: chest pain, palpitations, orthopnea, paroxysmal nocturnal dyspnea, edema, light headedness, other Gastrointestinal: negative: Nausea, Vomiting, Abdominal Pain, Diarrhea, Constipation, Melena, Hematochezia, Other Genitourinary: negative: Dysuria, Frequency, Incontinence, Hematuria, Retention , Other Musculoskeletal: negative: Neck Pain, Shoulder Pain, Arm Pain, Back Pain, Hand Pain, Leg Pain, Foot Pain, Other Skin: negative: Rash, Lesions, Evelio, Bruising, Other - Medications/Allergies Allergies/Adverse Reactions: Allergies Allergy/AdvReac Type Severity Reaction Status Date / Time No Known Allergies Allergy Verified 10/31/17 12:56 Medications: Current Medications Acetaminophen (Tylenol) 650 mg PO Q6H PRN PRN Reason: Headache/Fever Or Mild Pain Hydrocodone Bitart/Acetaminophen (Craig 5/325) 1 tab PO Q4H PRN PRN Reason: Moderate Pain (4-6) Hydrocodone Bitart/Acetaminophen ([place] 5/325) 2 tab PO Q4H PRN PRN Reason: Severe Pain (7-10) Al Hydroxide/Mg Hydroxide (Maalox) 30 ml PO Q4H PRN PRN Reason: Indigestion Albumin Human (Albumin 5%) 12.5 gm IVPB Q6H PRN PRN Reason: To Maintain SBP> 90 mmHG Stop: 11/03/17 09:40 Albumin Human (Albumin 5%) 25 gm IVPB Q6H PRN PRN Reason: To Maintain SBP > 90 mmHG Stop: 11/03/17 09:40 Albuterol/Ipratropium (Duoneb) 3 ml NEB [id number] PRN PRN Reason: SHORTNESS OF BREATH Aspirin (Aspirin Chewable) 81 mg PO DAILY [facility] Bisacodyl (Dulcolax) 10 mg PO Q12H PRN PRN Reason: Constipation Bisacodyl (Dulcolax) 10 mg ME Q12H PRN PRN Reason: Constipation Cyclosporine (Neoral) 100 mg PO BID [facility] Last Admin: 11/01/17 22:17 Dose: 100 mg Dextrose/Water (Dextrose 50%) 25 gm SLOW IVP PRN PRN PRN Reason: PER HYPOGLYCEMIC PROTOCOL Famotidine (Pepcid) 20 mg SLOW IVP 2[facility] Fentanyl (Sublimaze) 25 mcg SLOW IVP Q2H PRN PRN Reason: Moderate Pain (4-6) Stop: 11/04/17 07:32 Fentanyl (Sublimaze) 50 mcg SLOW IVP Q2H PRN PRN Reason: Severe Pain (7-10) Stop: 11/04/17 07:32 Glucagon (Glucagon) 1 mg SC PRN PRN PRN Reason: PER HYPOGLYCEMIC PROTOCOL Guaifenesin/Dextromethorphan (Robitussin Dm) 15 ml PO Q4H PRN PRN Reason: Cough Hetastarch/Sodium Chloride (Hespan) 500 mls @ 0 mls/hr IVPB PRN PRN PRN Reason: To Maintain SBP > 90mmHg Stop: 11/03/17 07:32 Norepinephrine Bitartrate (Levophed) 250 mls @ 0 mls/hr IVPB PRN PRN; Protocol PRN Reason: To maintain SBP > 90 mmHG Nicardipine HCl 25 mg/ Sodium (Chloride) 260 mls @ 0 mls/hr IVPB INF PRN; Protocol PRN Reason: To Maintain SBP< 140mmHG Nitroglycerin/Dextrose (Nitroglycerin 50 Mg/250 Ml Bot) 250 mls @ 0 mls/hr IVPB PRN PRN; Protocol PRN Reason: To Maintain SBP< 140mmHG Sodium Chloride (Normal Saline 0.9%) 1,000 mls @ 75 mls/hr IV .[id number] [facility] Insulin Human Regular 100 (units/ Sodium Chloride) 101 mls @ 0 mls/hr IVPB INF [facility]; Protocol Dextrose/Water (D5w) 1,000 mls @ 0 mls/hr IV INF PRN PRN Reason: PRN HYPOGLYCEMIC PROTOCOL Insulin Glargine (Lantus) 0 units SC ONE PRN PRN Reason: PER OPEN HEART ORDERS Stop: 11/03/17 17:00 Insulin Human Regular (Humulin R) 0 units SC Q4H PRN; Protocol PRN Reason: POST OP SLIDING SCALE Miscellaneous Information (Communication Order-Pharmacy) 1 each FS ASDIR [facility] Morphine Sulfate (Morphine) 2 mg SLOW IVP Q15MIN PRN PRN Reason: Severe Pain (7-10) Ondansetron HCl (Zofran) 4 mg IVP Q6H PRN PRN Reason: Nausea/Vomiting Potassium Chloride (Kcl) 20 meq IVPB PRN PRN PRN Reason: K level </= 4.0 Promethazine HCl (Phenergan) 6.25 mg IM Q4H PRN PRN Reason: Nausea/Vomiting
[2017-11-02] MEDS: cycloSPORINE, Modified 25 MG CAP PO SCH ×2 (13:01→19:53)
[2017-11-02] MEDS: Aspirin 81 mg Enteric Coated Tablet PO SCH (13:01)
[2017-11-02] MEDS: NPH, Human Insulin Isophane 300 UNIT/3 ML VIAL SC SCH (13:02)
[2017-11-02] MEDS: Calcium Carbonate + Vit D 1 TAB PO SCH (13:02)
[2017-11-02] MEDS: Fluticasone Propionate Nasal Spray 16 gm Bottle NASAL SCH (13:02)
[2017-11-02] MEDS: Mycophenolate 250 MG CAP PO SCH (13:02)
[2017-11-02] MEDS: predniSONE 5 MG TAB PO SCH (13:03)
[2017-11-02] MEDS ORDERED: CEFAZOLIN 1 GM VIAL ONE (13:18)
[2017-11-02 14:57] LABS: #Basophils 0.1 thou/uL (0.0-0.2); #Eosinphils 0.1 thou/uL (0.0-0.7); #Lymphocytes 2.5 thou/uL (1.20-3.40); #Monocytes 1.5 thou/uL (0.11-0.59); #Neutrophils 14.1 thou/uL (1.40-6.50); %Basophils 0.4 % (0.0-1.0); %Eosinophils 0.5 % (0.0-10.0); %Lymphocytes 13.7 % (21.0-51.0); %Monocytes 7.9 % (0.0-10.0); %Neutrophils 77.5 % (42.0-75.0); Hemoglobin 9.6 g/dL (14.0-18.0); Mean Corpuscular HGB CONC 31.7 g/dL (32.0-36.0); Mean Corpuscular Hemoglobin 30.4 pg (27.0-31.0); Mean Corpuscular Volume 95.7 fL (78.0-98.0); Platelet Count 135 thou/uL (130-400); RBC Distribution Width 14.6 % (11.5-14.5); Red Blood Cell (RBC) Count 3.17 mill/uL (4.70-6.10); White Blood Cell (WBC) Count 18.2 thou/uL (4.8-10.8)
--- NOTE | 2017-11-02 15:02 | RAD ---
SEMIUPRIGHT PORTABLE CHEST 1 VIEW: Date: 11/02/17 HISTORY: 66-year-old male with history of postop open heart. FINDINGS: Recent postop midline sternotomy changes are noted. Tracheostomy tube is in place with multiple chest tubes and right dual lumen venous access catheter. There is some mild bilateral vascular congestion with minimal pleural and parenchymal changes in the left base, evidence for some subsegmental atelect asis or some postoperative changes. IMPRESSION: Bilateral vascular congestion with some pleural and parenchymal opacity changes, primarily in the lef t base, evidence for some subsegmental atelectasis and/or other minimal postoperative changes. No pne umothorax or other acute process. POS: [facility]
[2017-11-02 15:04] LABS: INR-International Normal Ratio 1.4; PTT 27.1 SEC (22.9-36.1); Prothrombin Time 17.6 SEC (12.0-14.7)
[2017-11-02 15:16] LABS: Anion Gap 15 mmol/L (10-20); BUN (Urea Nitrogen) 12 mg/dL (8.4-25.7); Calc. Creatinine Clearance 46 mL/min (70-130); Calcium 7.4 mg/dL (7.8-10.44); Carbon Dioxide 17 mmol/L (23-31); Chloride 108 mmol/L (98-107); Estimated GFR-MDRD 31; Glucose 207 mg/dL (80-115); Potassium 3.5 mmol/L (3.5-5.1); Sodium 136 mmol/L (136-145)
[2017-11-02 15:17] LABS: Actual Bicarbonate (HCO3a) 17.4 mEq/L (22-28); Base Excess (BEa) -5.6 mEq/L (-2.0 to +3.0); CO2 Tension 26.5 mmHg (35.0-45.0); Calcium, Ionized 1.02 mmol/L (1.12-1.30); Carboxyhemoglobin (COHb) 0.8 gm% (0.0-3.0); Hemoglobin (Hb) 10.5 g/dL (14.0-18.0); O2 Tension (PaO2) 167.5 mmHg (> 80.0); Potassium - ABG Lab 3.45 mmol/L (3.70-5.30); pH, Arterial 7.44 (7.35-7.45)
[2017-11-02 15:18] LABS: ALV-art Gradient 155.875 (0-20); Puncture Site ALINE
[2017-11-02] MEDS: Sodium Chloride 0.9% 1,000 ML IV SCH ×2 (15:18→21:01)
[2017-11-02] MEDS ORDERED: PROPOFOL 200 MG/20 ML VIAL ONE (15:20)
[2017-11-02] MEDS ORDERED: Papaverine 60 MG/2 ML VIAL ONE (15:20)
[2017-11-02] MEDS ORDERED: Protamine Sulfate 250 MG/25 ML VIAL ONE (15:20)
[2017-11-02] MEDS ORDERED: Ondansetron HCl/PF 4 MG/2 ML Vial ONE (15:20)
[2017-11-02] MEDS ORDERED: Potassium Chloride 60 MEQ/30 ML VIAL ONE (15:20)
[2017-11-02] MEDS ORDERED: Mannitol 12.5 GM/50 ML ONE (15:20)
[2017-11-02] MEDS ORDERED: Norepinephrine 4 MG/4 ML VIAL ONE (15:20)
[2017-11-02] MEDS ORDERED: Sodium Bicarb 50 MEQ/50 ML VIAL ONE (15:20)
[2017-11-02] MEDS ORDERED: Aminocaproic Acid 5 GM/20 ML VIAL ONE (15:20)
[2017-11-02] MEDS ORDERED: Cardioplegic Soln 1,000 ML BAG ONE (15:20)
[2017-11-02] MEDS ORDERED: Succinylcholine Chloride 20 MG/ML 10 ml SYRINGE FS ONE (15:20)
[2017-11-02] MEDS ORDERED: EPINEPHrine 1 MG/ML AMP ONE (15:20)
[2017-11-02] MEDS ORDERED: Heparin 5,000 UNITS/ML VIAL ONE (15:20)
[2017-11-02] MEDS ORDERED: Lidocaine 2% PF 100 mg/5 ml Syringe ONE (15:20)
[2017-11-02] MEDS ORDERED: Calcium Chloride 1 GM/10 ML Abboject SYRINGE ONE (15:20)
[2017-11-02] MEDS ORDERED: Vecuronium 10 MG VIAL ONE (15:20)
[2017-11-02] MEDS ORDERED: Hydrocortisone Sod Succ/PF 100 mg/2 ml Vial ONE (15:20)
[2017-11-02] MEDS ORDERED: Heparin 30,000 units/30 ml VIAL ONE (15:20)
[2017-11-02] MEDS ORDERED: Magnesium 5 GM/10 ML VIAL ONE (15:20)
[2017-11-02] MEDS ORDERED: Fentanyl BOLUS 250 ML IVPB PRN (15:38)
[2017-11-02] MEDS ORDERED: DISCONTINUE PREVIOUS NARCOTIC PAIN MEDICATIONS AND BENZODIAZEPINES FS SCH (15:38)
[2017-11-02] MEDS ORDERED: fentaNYL Citrate/PF 2,000 MCG in Sodium Chloride 0.9% 60 ML IV SCH (15:38)
[2017-11-02] MEDS ORDERED: Lorazepam 2 MG/ML VIAL SLOW IVP PRN (15:38)
--- NOTE | 2017-11-02 15:40 | PRG ---
DATE OF SERVICE: 11/02/2017 SUBJECTIVE: Varun Gordon evaluated postoperatively. OBJECTIVE: VITAL SIGNS: Heart rate is 80, blood pressure 104/49. Oximetry is in the high 90s. He is still sedated from his operative procedures. LUNGS: Clear. HEART: Regular rhythm. ABDOMEN: Soft. EXTREMITIES: Warm. The nurses check Doppler pulses in his feet. LABORATORY DATA: White count 13.2, hemoglobin 9.6, platelets 135,000. Appears to be medically stable. No blood gases were drawn yet. IMPRESSION: 1. Status post coronary bypass grafting. 2. Systolic cardiomyopathy. 3. End-stage renal disease on dialysis. PLAN: I would not recommend weaning per protocol. We will reassess him in the morning. May need dialysis before we can proceed with weaning. Critical care time is 30 minutes. MTDD
--- NOTE | 2017-11-02 16:12 | OP ---
DATE OF PROCEDURE: 11/02/2017 PROCEDURES PERFORMED: Coronary artery bypass grafting x3 with left internal mammary artery to the di stal LAD and reverse greater saphenous vein grafts from the aorta to the obtuse marginal and to the d istal PDA. PREOPERATIVE DIAGNOSIS: Left main coronary artery disease, status post non-ST elevation myocardial i nfarction. POSTOPERATIVE DIAGNOSIS: Left main coronary artery disease, status post non-ST elevation myocardial infarction. SURGEON: Martín Mejía M.D. BUILDING CONSULTANT: Dr. East. ANESTHESIA: General endotracheal anesthesia. INDICATIONS: The patient is a 66-year-old man with a failing renal transplant, peripheral vascular d isease and diabetes. He has known coronary artery disease having had myocardial infarction earlier t his year after which his graft function deteriorated to the point of having to restart dialysis. He presented with chest pain and ultimately saw his troponin rise to a little over 4. He was taken urge ntly to the biological lab technician where he was found to have severe coronary artery disease that included left pat n disease, aneurysmal dilatation of the very proximal LAD, high grade disease in the LAD itself and i n the circumflex and an occluded right coronary system. He has significantly decreased LVEF on the o rder of 25%-30% by echocardiography. He is now taken to the operating room in stable condition for s urgical revascularization. FINDINGS: Pump time 127 minutes. Crossclamp time 36 minutes. Good quality RAOUL. The greater saphen ous vein is of good quality in the thigh, but about a handbreadth below the knee became quite small. All of the coronaries through their midportion were diffusely involved with rock hard plaque. The L AD distally was about 2 mm, the obtuse marginal about 1.5-2 mm and the distal PDA was about 1.5 mm. The pericardium was closed. NARRATIVE REPORT: After informed consent was obtained, the patient was taken to the operating room a nd placed in supine position on the operating table. After the induction of general anesthesia, ultr asonography was used to confirm patency of the left subclavian vein. His left upper chest was preppe d and draped in sterile fashion and a triple-lumen central line kit was used to place left subclavian central line by the Seldinger technique. All three ports easily aspirated and flushed. The line wa s secured. Ultrasonographic mapping was done of the veins of the left lower extremity and his torso, groins and lower extremities were then prepped and draped in sterile fashion. The arterial and femo ral sheaths in the right groin were prepped into the field and then ultimately covered in the process of draping. After draping, the greater saphenous vein was exposed a little above the left knee. It was endoscopically mobilized, but bleeding in the tract interfered with adequate division of side br anches to allow for harvesting. A skin bridge technique was utilized to complete the harvest of the vein and was prepared for use as a graft. A median sternotomy was performed. The left RAOUL was mobil ized as a pedicle from the level of the xiphoid to the level of the subclavian vein through an extrap leural exposure. There was about a 2-3 cm rent in the pleura anteriorly in the mid chest and a small er rent at the hilar aspect of the apex. The patient was heparinized. The mammary was ligated and d ivided distally. There was good flow through the mammary. The mammary pedicle was instilled intralu minally with papaverine solution and the mammary bed was inspected for hemostasis. A 36-Beninese chest tube was placed into the left pleural space and secured to the skin with suture. The RAOUL retractor was placed with Guthrie retractor. The pericardium was opened and marsupialized. The aorta was palpat ed and soft. The heart was extremely large. A double concentric pursestring of #2 Ethibond was plac ed in the ascending aorta just within the pericardial reflection and a single pursestring was placed in the right atrial appendage. Aortic and venous cannulae were inserted and secured by their pursest rings. Cardiopulmonary bypass was instituted and the patient was systemically cooled. The heart was examined. The vessels to be bypassed were identified. A longitudinal slit was made in the pericard ium anterior to the left phrenic nerve through which the mammary pedicle could be passed. The plane between the aorta and the pulmonary artery was developed and aortic crossclamp was applied and cardio plegia was administered through the aortic root needle. When arrest had been achieved, attention was turned to the distal PDA, was exposed and opened where it became a relatively soft vessel. Reverse greater saphenous vein was anastomosed there end-to-side with running Prolene and the anastomosis tracy gregory by flush and cold saline down the graft. The largest branch of the obtuse marginal was opened an d grafted in a similar fashion. The LAD was then opened and the mammary was anastomosed there with r unning 7-0 Prolene. The mammary pedicle was tacked to the epicardium. The aortic crossclamp was manny brown with a partial occlusion clamp and the aortotomy was made in the ascending aorta with a scalpel a nd punch incorporating the root needle site for one of the aortotomies. The PDA graft was brought al latanya the right side of the heart and anastomosed to the more proximal aortotomy. The OM graft was ryanne stomosed to the more distal aortotomy. The partial occluding clamp was removed and the vein grafts w ere deaired and checking the anastomosis for hemostasis, it can be appreciated that the OM graft had a 360-degree twist in it. Bulldogs were applied and it was transected and reoriented and then an end -to-end anastomosis was constructed to reestablish continuity of the graft to the obtuse marginal. T he posterior pericardial drain was brought out through a separate incision and secured with suture. Right atrial and right ventricular temporary epicardial pacing wires were placed. The patient's intr insic heart rate was somewhat slow. He was paced in a higher right and with low dose vasoactive drip s. He was slowly weaned from cardiopulmonary bypass. As the heart began to fill, it can be apprecia gregory that the OM graft was rather tight and when the patient was off bypass, it was felt to be stretch ed too tightly. Full bypass support was reinstituted and a segment of vein was harvested from the le ft groin where a fairly good size tributary to the saphenous system was identified. Bulldogs were re applied to the OM graft. A venotomy was made just beyond the end-to-end anastomosis and that reverse d vein was anastomosed there distally end-to-side. A second venotomy was made just on the aorta side of the end-to-end anastomosis and when that anastomosis had been completed, the interposed segment o f vein graft was doubly ligated on either side of the end-to-end anastomosis and then divided with a very gratifying lengthening of the graft by about 3 cm. When weaning off bypass, there was adequate slack on the graft. The patient was then decannulated. He tolerated the test dose of protamine. Th e aortic and venous cannula removed and their pursestring secured. Protamine was administered. When hemostasis was adequate, an anterior mediastinal drain was placed. The pericardium was easily close d over with running Vicryl. The sternum was reapproximated with #7 stainless steel wires after treat ing the two cut sternum with vancomycin paste. The fascia was closed over the wires with heavy Vicryl, subcutaneous tissue was irrigated and reapproximated and the skin was closed with Vicryl sub cuticular stitch. The wounds were dressed. The patient was taken to the intensive care unit in stab le condition.
[2017-11-02] MEDS: Norepinephrine 8 MG/0.9% NS 250 ML IVPB PRN (16:51)
--- NOTE | 2017-11-02 17:50 | PRG ---
DATE OF SERVICE: 11/02/2017 SUBJECTIVE: A 66-year-old gentleman being seen for end-stage renal disease. The patient is resting. PHYSICAL EXAMINATION: GENERAL: Patient is resting. VITAL SIGNS: Afebrile, pulse 75, breathing 16, blood pressure 150/62. HEAD/NECK: Normocephalic. Atraumatic. EYES: EOMI. No deformity. EARS: Clear. No ulcers. NOSE: Intact. No lesions. MOUTH: Clear. No discharge. THROAT: Clear. No exudate. LUNGS: Clear. No crackles. CARDIAC: S1, S2. No rub. ABDOMEN: Benign. BS+. GENITALIA/RECTUM: Yuan absent. BACK/EXTREMITIES: Edema 0+ Ulcer- NEUROLOGICAL: Alert and motor intact. SKIN: Rash- Bruise- LYMPHATICS: Edema- Ulcer- LABORATORY DATA: Show hemoglobin 9.6, creatinine 2.54. ASSESSMENT: 1. Stage 6 chronic kidney disease, plan dialysis tomorrow. 2. Hypertension, stable. 3. Anemia, stable. 4. Medications based on glomerular filtration rate are appropriate. 5. Chronic immunosuppression. Continue chronic immunosuppression.
[2017-11-02] MEDS ORDERED: EPINEPHrine 1 MG, Admixture Fee 1 EACH in Dextrose 5% in Water 250 ML IVPB SCH (18:15)
[2017-11-02 19:35] LABS: Hemoglobin 10.2 g/dL (14.0-18.0)
[2017-11-02 19:43] LABS: Potassium 3.3 mmol/L (3.5-5.1)
[2017-11-02] MEDS ORDERED: Potassium Chloride 10 MEQ in Premix Bag 1 BAG IVPB SCH (20:15)
[2017-11-02] MEDS: Famotidine/PF 20 mg/2ml Vial SLOW IVP SCH (21:00)
[2017-11-03 04:51] LABS: Anion Gap 15 mmol/L (10-20); BUN (Urea Nitrogen) 16 mg/dL (8.4-25.7); Calc. Creatinine Clearance 37 mL/min (70-130); Calcium 7.9 mg/dL (7.8-10.44); Carbon Dioxide 16 mmol/L (23-31); Chloride 109 mmol/L (98-107); Estimated GFR-MDRD 24; Glucose 126 mg/dL (80-115); Potassium 4.2 mmol/L (3.5-5.1); Sodium 136 mmol/L (136-145)
[2017-11-03 05:33] LABS: Band 23 % (5-11); Hemoglobin 9.8 g/dL (14.0-18.0); Lymphocytes 4 % (21-51); MDiff Complete? YES; Mean Corpuscular HGB CONC 31.8 g/dL (32.0-36.0); Mean Corpuscular Hemoglobin 30.6 pg (27.0-31.0); Mean Corpuscular Volume 96.1 fL (78.0-98.0); Mean Platelet Volume 8.6 fL (7.4-10.4); Monocytes 13 % (0-10); Neutrophil 60 % (42-75); Platelet Count 152 thou/uL (130-400); RBC Distribution Width 14.6 % (11.5-14.5); Red Blood Cell (RBC) Count 3.21 mill/uL (4.70-6.10); White Blood Cell (WBC) Count 10.2 thou/uL (4.8-10.8)
[2017-11-03] MEDS: Norepinephrine 8 MG/0.9% NS 250 ML IVPB PRN (05:59)
--- NOTE | 2017-11-03 08:44 | PDOC.PN ---
- Subjective Encounter Start Date: 11/03/17 Encounter Start Time: 08:40 Mr. Gordon was seen today in follow-up of AL, s/p CABG. He is intubated, and awake. He indicates he wants the ET tube out. His daughter is at bedside. - Objective Resuscitation Status: Resuscitation Status FULL:Full Resuscitation MAR Reviewed: Yes Vital Signs & Weight: Vital Signs (12 hours) Pulse Resp BP Pulse Ox 11/03/17 06:36 100 11/03/17 06:34 87 124/53 L 11/03/17 06:00 12 11/03/17 04:00 12 11/03/17 02:10 86 114/47 L 11/03/17 02:00 12 11/03/17 00:00 12 11/02/17 22:03 85 95/37 L 11/02/17 22:00 12 Weight Admit Weight 259 lb 4.218 oz Weight 259 lb 0.69 oz Most Recent Monitor Data Heart Rate from ECG 86 NIBP 128/71 NIBP BP-Mean 90 Respiration from ECG 6 SpO2 100 I&O: 11/02/17 11/03/17 11/04/17 06:59 06:59 06:59 Intake Total 919.5 1628.9 Output Total 610 60 Balance 919.5 1018.9 -60 Result Diagrams: 11/03/17 04:17 11/03/17 04:17 Additional Labs: Accuchecks 11/03/17 11/03/17 11/03/17 05:32 04:21 03:18 POC Glucose 109 118 H 108 11/03/17 11/03/17 11/02/17 02:09 00:23 23:11 POC Glucose 108 128 H 127 H 11/02/17 11/02/17 11/02/17 22:11 21:14 20:27 POC Glucose 118 H 105 104 11/02/17 11/02/17 11/02/17 19:14 18:12 17:08 POC Glucose 143 H 146 H 166 H 11/02/17 11/02/17 11/02/17 14:48 14:03 13:19 POC Glucose 198 H 182 H 140 H 11/02/17 11/02/17 11/02/17 12:36 11:52 11:17 POC Glucose 118 H 105 98 11/02/17 11/02/17 10:36 08:37 POC Glucose 89 90 Radiology Reviewed by me: Yes (CXR- cardiomeagly, L pleural effusion) Phys Exam - Physical Examination HEENT: PERRLA, sclera anicteric Respiratory: no wheezing, no rales + rhonchi bilateral, and decreased breath sounds Cardiovascular: RRR, no significant murmur, no rub Gastrointestinal: soft, non-tender, no distention, positive bowel sounds Musculoskeletal: edema present + generalized edema , on al lextremities Neurological: non-focal, moves all 4 limbs Dx/Plan (1) Acute ST elevation myocardial infarction (STEMI) of anterior wall Code(s): I21.09 - STEMI INVOLVING OTH CORONARY ARTERY OF ANTERIOR WALL Status : Acute (2) CKD (chronic kidney disease) stage V requiring chronic dialysis Code(s): N18.6 - END STAGE RENAL DISEASE; Z99.2 - DEPENDENCE ON RENAL DIALYSIS Status: Acute (3) DM type 2 (diabetes mellitus, type 2) Status: Chronic Qualifiers: Diabetes mellitus terminal carman insulin use: with jail use Diabetes mellitus complication detail: with chronic kidney disease Chronic kidney disease stage: stage 3 (moderate) (4) H/O kidney transplant Status: Chronic (5) HTN (hypertension) Code(s): I10 - ESSENTIAL (PRIMARY) HYPERTENSION Status: Chronic Qualifiers: Hypertension type: essential hypertension Qualified Code(s): I10 - Essential (primary) hypertension (6) Multi-vessel coronary artery stenosis Code(s): I25.10 - ATHSCL HEART DISEASE OF [place] CORONARY ARTERY W/O ANG PCTRS Status: Chronic (7) Acute on chronic systolic heart failure, NYHA class 3 Code(s): I50.23 - ACUTE ON CHRONIC SYSTOLIC (CONGESTIVE) HEART FAILURE Status : Acute - Plan * Acute anterior AL - s/p CABG- he is hemodyanmically stable * HTN- blood pressure- requiring pressors * DM- blood glucose is stable * ESRD and s/p renal transplant- plan is for dialsys today * Acute systolic heart failure- Dialysis for fluid removal- and repeat echo next week .
--- NOTE | 2017-11-03 09:22 | PRG ---
DATE OF SERVICE: 11/03/2017 SUBJECTIVE: This is a 66-year-old gentleman being seen for end-stage renal disease. The patient is intubated. PHYSICAL EXAMINATION: GENERAL: Patient is resting. VITAL SIGNS: Afebrile, pulse 88, breathing 16, blood pressure 112/46. OBJECTIVE: See above. Awake, alert, in no acute distress. GENERAL APPEARANCE AND MENTAL STATUS: Fair. HEAD/NECK: Normocephalic. Atraumatic. EYES: EOMI. No deformity. EARS: Clear. No ulcers. NOSE: Intact. No lesions. MOUTH: Clear. No discharge. THROAT: Clear. No exudate. LUNGS: Clear. No crackles. CARDIAC: S1, S2. No rub. ABDOMEN: Benign. BS+. GENITALIA/RECTUM: Yuan absent. BACK/EXTREMITIES: Edema 0+ Ulcer- NEUROLOGICAL: Alert and motor intact. SKIN: Rash- Bruise- LYMPHATICS: Edema- Ulcer- LABORATORY: Hemoglobin 9.8. ASSESSMENT AND RECOMMENDATIONS: 1. Stage 6 chronic kidney disease, plan hemodialysis. 2. Acidosis. Plan dialysis. 3. Hyperkalemia, improved. 4. Pulmonary edema, plan dialysis. 5. Anemia, stable.
--- NOTE | 2017-11-03 09:27 | RAD ---
PORTABLE CHEST: Date: 11-03-17 Provided Clinical History: Post open heart. FINDINGS: Comparison is made with the study dated 11-02-17. Significant interval change with respect to the prior examination is not apparent. IMPRESSION: As above. POS: ANNALISE
--- NOTE | 2017-11-03 10:54 | PRG ---
DATE OF SERVICE: 11/03/2017 PHYSICAL EXAMINATION: VITAL SIGNS: Mr. Gordon heart rate is in the 80s. Blood pressure 121/47, respiratory rates in the te ens. GENERAL: He will awaken. LUNGS: His lungs are clear anteriorly. CARDIOVASCULAR: Regular rhythm. ABDOMEN: Soft. EXTREMITIES: Without asymmetry. LABORATORY DATA: White count 10.2, hemoglobin 9.8, platelets 152. Sodium 136, potassium 4.2, chloride 109, bicarbonate 16, BUN 16, creatinine 3.14. There is no blood gas this morning for some reason. IMPRESSION: 1. Metabolic acidosis with renal failure after coronary bypass grafting. 2. End-stage renal disease, which was from an acid base disorder. He needs to be dialyzed this morn ing and he can be considered for weaning and extubation. Chest radiograph shows only mild edema not surprisingly. We will get a blood gas and consider weanin g and extubation after dialysis. Critical care time was 30 minutes.
[2017-11-03] MEDS: cycloSPORINE, Modified 25 MG CAP PO SCH ×2 (12:09→20:43)
[2017-11-03] MEDS ORDERED: Heparin 10,000 UNITS/ 10 ML VIAL ONE (15:00)
[2017-11-03 16:09] LABS: Actual Bicarbonate (HCO3a) 23.1 mEq/L (22-28); Base Excess (BEa) 0.6 mEq/L (-2.0 to +3.0); CO2 Tension 29.8 mmHg (35.0-45.0); Calcium, Ionized 0.98 mmol/L (1.12-1.30); Carboxyhemoglobin (COHb) 1.4 gm% (0.0-3.0); Hemoglobin (Hb) 9.6 g/dL (14.0-18.0); O2 Tension (PaO2) 115.8 mmHg (> 80.0); Potassium - ABG Lab 3.98 mmol/L (3.70-5.30); pH, Arterial 7.51 (7.35-7.45)
[2017-11-03 16:11] LABS: Puncture Site A-LINE
[2017-11-03] MEDS: Sodium Chloride 0.9% 1,000 ML IV SCH (16:51)
[2017-11-03] MEDS: Insulin Regular 300 UNITS/3 ML VIAL SC PRN (19:58)
[2017-11-03] MEDS: Famotidine/PF 20 mg/2ml Vial SLOW IVP SCH (20:45)
[2017-11-04] MEDS ORDERED: Hydrocortisone Sod Succ/PF 100 mg/2 ml Vial ONE (01:50)
[2017-11-04] MEDS ORDERED: Norepinephrine 8 MG/0.9% NS 250 ML ONE (01:52)
[2017-11-04 01:53] LABS: Actual Bicarbonate (HCO3a) 19.8 mEq/L (22-28); Base Excess (BEa) -5.1 mEq/L (-2.0 to +3.0); Calcium, Ionized 1.01 mmol/L (1.12-1.30); Hemoglobin (Hb) 8.4 g/dL (14.0-18.0); Potassium - ABG Lab 3.87 mmol/L (3.70-5.30); pH, Arterial 7.36 (7.35-7.45)
[2017-11-04 01:55] LABS: Hemoglobin 7.7 g/dL (14.0-18.0); Mean Corpuscular HGB CONC 31.2 g/dL (32.0-36.0); Mean Corpuscular Hemoglobin 30.4 pg (27.0-31.0); Mean Corpuscular Volume 97.6 fL (78.0-98.0); RBC Distribution Width 14.8 % (11.5-14.5); Red Blood Cell (RBC) Count 2.53 mill/uL (4.70-6.10); White Blood Cell (WBC) Count 6.9 thou/uL (4.8-10.8)
[2017-11-04 01:56] LABS: Puncture Site FEM
[2017-11-04 01:57] LABS: INR-International Normal Ratio 1.6; PTT 35.8 SEC (22.9-36.1)
[2017-11-04] MEDS ORDERED: Digoxin 0.5 MG/2 ML AMP ONE (02:05)
[2017-11-04 02:08] LABS: #Basophils 0.1 thou/uL (0.0-0.2); #Lymphocytes 2.6 thou/uL (1.20-3.40); #Monocytes 0.7 thou/uL (0.11-0.59); #Neutrophils 3.5 thou/uL (1.40-6.50); %Basophils 0.9 % (0.0-1.0); %Eosinophils 0.3 % (0.0-10.0); %Lymphocytes 37.3 % (21.0-51.0); %Monocytes 10.7 % (0.0-10.0); %Neutrophils 50.7 % (42.0-75.0); Mean Platelet Volume 8.8 fL (7.4-10.4); PLT Morphology Comment Appears Decreased; Platelet Count 98 thou/uL (130-400)
[2017-11-04 02:11] LABS: ALT (SGPT) Less than 7 U/L (8-55); AST (SGOT) 21 U/L (5-34); Albumin 2.3 g/dL (3.4-4.8); Alkaline Phosphatase 64 U/L (40-150); Anion Gap 14 mmol/L (10-20); BUN (Urea Nitrogen) 11 mg/dL (8.4-25.7); Bilirubin, Total 0.6 mg/dL (0.2-1.2); Calc. Creatinine Clearance 52 mL/min (70-130); Calcium 7.4 mg/dL (7.8-10.44); Carbon Dioxide 37 mmol/L (23-31); Chloride 102 mmol/L (98-107); Estimated GFR-MDRD 34; Globulin 1.8 g/dL (2.4-3.5); Glucose 89 mg/dL (80-115); Magnesium 1.7 mg/dL (1.6-2.6); Phosphorus 2.4 mg/dL (2.3-4.7); Potassium 4.7 mmol/L (3.5-5.1); Protein, Total 4.1 g/dL (5.8-8.1); Sodium 148 mmol/L (136-145)
[2017-11-04] MEDS ORDERED: Propofol 1,000 MG/100 ML VIAL IV ONE (02:14)
[2017-11-04] MEDS ORDERED: EPINEPHrine 1 MG, Admixture Fee 1 EACH in Dextrose 5% in Water 250 ML IVPB SCH (02:15)
[2017-11-04 02:16] LABS: Actual Bicarbonate (HCO3a) 16.9 mEq/L (22-28); Base Excess (BEa) -7.9 mEq/L (-2.0 to +3.0); CO2 Tension 31.6 mmHg (35.0-45.0); Calcium, Ionized 1.01 mmol/L (1.12-1.30); Carboxyhemoglobin (COHb) 0.8 gm% (0.0-3.0); Hemoglobin (Hb) 8.7 g/dL (14.0-18.0); O2 Tension (PaO2) 74.5 mmHg (> 80.0); Potassium - ABG Lab 3.36 mmol/L (3.70-5.30); pH, Arterial 7.35 (7.35-7.45)
[2017-11-04] MEDS ORDERED: Lorazepam 2 MG/ML VIAL SLOW IVP PRN (02:18)
[2017-11-04] MEDS ORDERED: DISCONTINUE PREVIOUS NARCOTIC PAIN MEDICATIONS AND BENZODIAZEPINES FS SCH (02:18)
[2017-11-04] MEDS ORDERED: Fentanyl BOLUS 250 ML IVPB PRN (02:18)
[2017-11-04] MEDS ORDERED: Propofol 1,000 MG/100 ML VIAL IV PRN (02:18)
[2017-11-04] MEDS ORDERED: Propofol BOLUS 1,000 MG/100 ML VIAL IV PRN (02:18)
[2017-11-04 02:20] LABS: Peep/CPAP 7.5 cmH2O
[2017-11-04 02:21] LABS: Troponin I 10.685 ng/mL (< 0.028)
[2017-11-04] MEDS: fentaNYL Citrate/PF 2,000 MCG in Sodium Chloride 0.9% 60 ML IV SCH (02:32)
--- NOTE | 2017-11-04 02:46 | PDOC.EVN ---
Event Note - Event Note Event Note: [facility] on 11/04 at 01:22 66 yo male in the ICU post op day 2 s/p CABG on 11/02. He was extubated the afternoon of 11/03. Nurses report he had bradycardia so they initiated pacer wires. Soon after he was non-responsive and they were unable to find a pulse so [facility] was called. I arrived while chest compressions were being done, monitors showed PEA. Epinephrine was given. At the first pulse check, a pulse was heard with doppler on the left femoral and monitor showed atrial fibrillation. Intubation was attempted by me with Mac blade, but I was unable to visualize the cords. Bag mask was utilized until glidescope was brought to bedside. Intubation with glidescope was successful on first try. Capnography color change to yellow was visualized. 7.0 tube was secured with 24cm at the lips. Labs were drawn, CBC, trop, ABG. AB.36, pCO2 36, pO2 77. O2 saturation was initially low, but monitor was replaced and levels improved to mid 90s%. After ROSC, Dr. East arrived and took over care of the patient. Dr. Connor was present for the entire [facility].
[2017-11-04] MEDS ORDERED: Amiodarone HCl 150 MG, Admixture Fee 1 EACH in Dextrose 5% in Water 100 ML IVPB SCH (03:00)
[2017-11-04] MEDS ORDERED: Calcium Chloride 1 GM/10 ML Abboject SYRINGE IVP SCH (03:00)
[2017-11-04 03:10] LABS: Actual Bicarbonate (HCO3a) 16.8 mEq/L (22-28); Base Excess (BEa) -6.7 mEq/L (-2.0 to +3.0); Carboxyhemoglobin (COHb) 1.1 gm% (0.0-3.0); Hemoglobin (Hb) 8.2 g/dL (14.0-18.0); Potassium - ABG Lab 3.42 mmol/L (3.70-5.30); pH, Arterial 7.43 (7.35-7.45)
[2017-11-04 03:13] LABS: Puncture Site ALINE
[2017-11-04 03:14] LABS: Peep/CPAP 7.5 cmH2O
[2017-11-04] MEDS ORDERED: EPINEPHrine 4 MG in Dextrose 5% in Water 250 ML IV SCH (03:30)
[2017-11-04] MEDS ORDERED: Sodium Bicarb 50 MEQ/50 ML Abboject 8.4% SYRINGE IVP SCH (03:45)
[2017-11-04 04:19] LABS: Actual Bicarbonate (HCO3a) 19.2 mEq/L (22-28); Base Excess (BEa) -4.2 mEq/L (-2.0 to +3.0); CO2 Tension 28.5 mmHg (35.0-45.0); Calcium, Ionized 1.04 mmol/L (1.12-1.30); Carboxyhemoglobin (COHb) 1.6 gm% (0.0-3.0); Hemoglobin (Hb) 8.1 g/dL (14.0-18.0); O2 Tension (PaO2) 281.4 mmHg (> 80.0); Potassium - ABG Lab 3.39 mmol/L (3.70-5.30); pH, Arterial 7.45 (7.35-7.45)
[2017-11-04 04:20] LABS: ALV-art Gradient 395.975 (0-20); Puncture Site LINE
[2017-11-04] MEDS: Sodium Chloride 0.9% 1,000 ML IV SCH ×2 (04:39→16:56)
[2017-11-04] MEDS: Amiodarone HCl 450 MG, Admixture Fee 1 EACH in Dextrose 5% in Water 250 ML IVPB SCH ×2 (04:52→10:55)
[2017-11-04] MEDS ORDERED: Heparin 10,000 UNITS/ 10 ML VIAL CATH PRN (04:53)
[2017-11-04 07:10] LABS: Actual Bicarbonate (HCO3a) 16.9 mEq/L (22-28); Base Excess (BEa) -6.5 mEq/L (-2.0 to +3.0); CO2 Tension 26.9 mmHg (35.0-45.0); Calcium, Ionized 1.04 mmol/L (1.12-1.30); Carboxyhemoglobin (COHb) 1.1 gm% (0.0-3.0); Hemoglobin (Hb) 9.6 g/dL (14.0-18.0); O2 Tension (PaO2) 120.8 mmHg (> 80.0); Potassium - ABG Lab 3.53 mmol/L (3.70-5.30); pH, Arterial 7.42 (7.35-7.45)
[2017-11-04 07:21] LABS: ALV-art Gradient 273.375 (0-20); Puncture Site ALINE
[2017-11-04 08:08] LABS: Hemoglobin 9.1 g/dL (14.0-18.0); Mean Corpuscular HGB CONC 31.9 g/dL (32.0-36.0); Mean Corpuscular Hemoglobin 30.7 pg (27.0-31.0); Mean Corpuscular Volume 96.4 fL (78.0-98.0); Mean Platelet Volume 8.9 fL (7.4-10.4); Platelet Count 96 thou/uL (130-400); RBC Distribution Width 14.3 % (11.5-14.5); Red Blood Cell (RBC) Count 2.97 mill/uL (4.70-6.10); White Blood Cell (WBC) Count 6.3 thou/uL (4.8-10.8)
[2017-11-04 08:22] LABS: Anion Gap 21 mmol/L (10-20); BUN (Urea Nitrogen) 14 mg/dL (8.4-25.7); Calc. Creatinine Clearance 45 mL/min (70-130); Calcium 7.9 mg/dL (7.8-10.44); Carbon Dioxide 17 mmol/L (23-31); Chloride 104 mmol/L (98-107); Estimated GFR-MDRD 28; Glucose 201 mg/dL (80-115); Potassium 3.7 mmol/L (3.5-5.1); Sodium 138 mmol/L (136-145)
[2017-11-04 08:29] LABS: INR-International Normal Ratio 1.5; Prothrombin Time 18.5 SEC (12.0-14.7)
--- NOTE | 2017-11-04 08:41 | RAD ---
PORTABLE CHEST: History: Post intubation. Comparison: Prior day's study. FINDINGS: An endotracheal tube is in satisfactory position. Left chest tube unchanged in position. Left sided H emoSplit catheter also unchanged. Parenchymal lung changes are slightly increased with some slightly increased perihilar interstitial alveolar lung change. IMPRESSION: Slight worsening to the interstitial alveolar lung changes as compared to the prior study. POS: H
--- NOTE | 2017-11-04 08:45 | RAD ---
PORTABLE CHEST: HISTORY: Respiratory distress. COMPARISON: Earlier exam of the same day. FINDINGS: The endotracheal tube is in satisfactory position. NG tube below the hemidiaphragm. Right-sided Hem oSplit catheter is in place. The left chest tube is unchanged in position. Interstitial alveolar pilo ng changes are felt to be fairly similar to the prior exam. IMPRESSION: Stable exam. POS: MAGGIE
--- NOTE | 2017-11-04 08:54 | RAD ---
CHEST 1 VIEW: Date: 11/04/17 HISTORY: Dyspnea. Follow-up. COMPARISON: Earlier exam same date. FINDINGS: Cardiac silhouette is magnified and enlarged. Pulmonary vasculature remains engorged. Mediastinum is midline. Defibrillator patch overlies the midline. Lines and tubes appear unchanged in position. Patc hy bibasilar infiltrates are similar in appearance. IMPRESSION: Bibasilar infiltrates, pulmonary vascular congestion, and other findings are stable. POS: ANNALISE
[2017-11-04] MEDS: Insulin Regular 300 UNITS/3 ML VIAL SC PRN ×3 (09:18→16:42)
[2017-11-04 09:29] LABS: Band 62 % (5-11); Lymphocytes 8 % (21-51); MDiff Complete? YES; Metamyelocyte 10 % (0-0); Monocytes 4 % (0-10); Myelocyte 1 % (0-0); Neutrophil 14 % (42-75); Nucleated RBC 1 % (0); PLT Morphology Comment Appears Decreased; Polychromasia SLIGHT = 2-3 cells (100X) (0-2/hpf); Reactive Lymphocytes 1 % (0-10); Reflex for Review?? NO; Toxic Granulation SLIGHT; Vacuoles MODERATE
--- NOTE | 2017-11-04 09:32 | PDOC.PN ---
- Subjective Encounter Start Date: 11/04/17 Encounter Start Time: 09:30 Mr. Gordon was seen today in follow-up of NSTEMI. The events of last night were noted. Patient was extubated, and then went into severe bradycardia and then PEA. A code was called, and he has been re-intubated. - Objective Resuscitation Status: Resuscitation Status FULL:Full Resuscitation MAR Reviewed: Yes Vital Signs & Weight: Vital Signs (12 hours) Temp Pulse Resp BP Pulse Ox 11/04/17 08:00 97.6 F 11/04/17 06:55 76 131/70 100 11/04/17 06:32 97.5 F L 11/04/17 06:00 13 11/04/17 05:20 97.4 F L 11/04/17 05:04 97.3 F L 11/04/17 05:00 97.4 F L 11/04/17 04:03 97.5 F L 11/04/17 04:00 100 11/04/17 02:44 108 H 100/57 L 11/04/17 02:09 150 H 11/04/17 00:00 97.5 F L Weight Admit Weight 259 lb 4.218 oz Weight 258 lb 2.581 oz Most Recent Monitor Data Heart Rate from ECG 73 NIBP 136/69 NIBP BP-Mean 91 Respiration from ECG 14 SpO2 100 I&O: 11/03/17 11/04/17 11/05/17 06:59 06:59 06:59 Intake Total 1628.9 2238 Output Total 610 500 20 Balance 1018.9 1738 -20 Result Diagrams: 11/04/17 07:53 11/04/17 07:53 Additional Labs: Accuchecks 11/04/17 11/04/17 11/03/17 04:15 01:03 19:57 POC Glucose 165 H 104 129 H 11/03/17 11/03/17 11/03/17 15:08 13:57 12:50 POC Glucose 114 H 120 H 119 H 11/03/17 11/03/17 11/03/17 11:43 10:37 09:33 POC Glucose 132 H 113 H 114 H 11/03/17 11/03/17 11/03/17 08:23 07:17 06:10 POC Glucose 97 104 129 H Phys Exam - Physical Examination HEENT: PERRLA + coarse breath sounds Cardiovascular: RRR, no significant murmur, no rub Gastrointestinal: soft, non-tender, no distention, positive bowel sounds Musculoskeletal: edema present + diffuse edema in both lower extremities, and upper extremities Dx/Plan (1) Acute ST elevation myocardial infarction (STEMI) of anterior wall Code(s): I21.09 - STEMI INVOLVING OTH CORONARY ARTERY OF ANTERIOR WALL Status : Acute (2) CKD (chronic kidney disease) stage V requiring chronic dialysis Code(s): N18.6 - END STAGE RENAL DISEASE; Z99.2 - DEPENDENCE ON RENAL DIALYSIS Status: Acute (3) DM type 2 (diabetes mellitus, type 2) Status: Chronic Qualifiers: Diabetes mellitus half-way insulin use: with chalk tester use Diabetes mellitus complication detail: with chronic kidney disease Chronic kidney disease stage: stage 3 (moderate) (4) H/O kidney transplant Status: Chronic (5) HTN (hypertension) Code(s): I10 - ESSENTIAL (PRIMARY) HYPERTENSION Status: Chronic Qualifiers: Hypertension type: essential hypertension Qualified Code(s): I10 - Essential (primary) hypertension (6) Multi-vessel coronary artery stenosis Code(s): I25.10 - ATHSCL HEART DISEASE OF [place] CORONARY ARTERY W/O ANG PCTRS Status: Chronic (7) Acute on chronic systolic heart failure, NYHA class 3 Code(s): I50.23 - ACUTE ON CHRONIC SYSTOLIC (CONGESTIVE) HEART FAILURE Status : Acute - Plan * Anterior STEMI- patient had an acute cardiac event last night, and was successfully resuscitated- he has been re-intubated * Echo has been ordered * HTN- blood pressure is requiring pressor support * DM- blood glucose is stable * CKD- stable * Further recommendations per Cardiology, and CV surgery
[2017-11-04] MEDS ORDERED: Succinylcholine Chloride 200 MG/10 ML VIAL ONE (10:18)
[2017-11-04 11:08] LABS: Hemoglobin 9.5 g/dL (14.0-18.0); Platelet Count 105 thou/uL (130-400)
[2017-11-04] MEDS: cycloSPORINE, Modified 25 MG CAP PO SCH ×2 (11:32→20:36)
--- NOTE | 2017-11-04 11:34 | PRG ---
DATE OF SERVICE: 11/04/2017 SUBJECTIVE: This is a 66-year-old gentleman being seen for end-stage renal disease. Overnight events noted. The patient remains intubated. PHYSICAL EXAMINATION: GENERAL: Patient is resting. VITAL SIGNS: Afebrile, pulse 76, breathing 16, blood pressure 136/73. OBJECTIVE: See above. Awake, alert, in no acute distress. GENERAL APPEARANCE AND MENTAL STATUS: Fair. HEAD/NECK: Normocephalic. Atraumatic. EYES: EOMI. No deformity. EARS: Clear. No ulcers. NOSE: Intact. No lesions. MOUTH: Clear. No discharge. THROAT: Clear. No exudate. LUNGS: Clear. No crackles. CARDIAC: S1, S2. No rub. ABDOMEN: Benign. BS+. GENITALIA/RECTUM: Yuan absent. BACK/EXTREMITIES: Edema 0+ Ulcer- NEUROLOGICAL: resting SKIN: Rash- Bruise- LYMPHATICS: Edema- Ulcer- LABORATORY: Hemoglobin 9.1, creatinine 2.7. ASSESSMENT AND RECOMMENDATIONS: 1. Stage 6 chronic kidney disease. No indication for dialysis. 2. Hypertension, stable. 3. Anemia, stable. 4. Medication based on glomerular filtration rate are appropriate. MTDD
[2017-11-04] MEDS ORDERED: Calcium Chloride 1 GM/10 ML Abboject SYRINGE ONE (15:00)
[2017-11-04] MEDS ORDERED: Sodium Bicarb 50 MEQ/50 ML Abboject 8.4% SYRINGE ONE (15:00)
[2017-11-04] MEDS ORDERED: EPINEPHrine 1 MG/10 ML Abboject SYRINGE ONE (15:00)
--- NOTE | 2017-11-04 15:23 | EKG ---
Test Reason : Blood Pressure : / mmHG Vent. Rate : 144 BPM Atrial Rate : 083 BPM P-R Int : 000 ms QRS Dur : 112 ms QT Int : 318 ms P-R-T Axes : 000 042 177 degrees QTc Int : 492 ms Suspect unspecified pacemaker failure Atrial fibrillation with rapid ventricular response with frequent ventricular-paced complexes Inferior infarct , possibly acute Anteroseptal infarct , age undetermined ACUTE WA / STEMI Consider right ventricular involvement in acute inferior infarct Abnormal ECG No previous ECGs available Confirmed by JOANA DERAS, DR. Antunez ([id number]) on 11/04/2017 3:22:32 PM Referred By: SARWAT Confirmed By:DR. Harmony BERNARD MD
--- NOTE | 2017-11-04 19:09 | PRG ---
DATE OF SERVICE: 11/04/2017 SUBJECTIVE: Mr. Gordon had pulseless electrical activity last night. He actually will follow commands and move all his extremities to command this morning. OBJECTIVE: VITAL SIGNS: This afternoon, his blood pressure 137/74, heart rate 79, respiratory rate 16, remains mechanically ventilated. LUNGS: Clear. HEART: Regular rhythm. ABDOMEN: Soft and nontender. LABORATORY DATA: White count 6.3, hemoglobin 9.1, platelets 96,000. Multiple blood gases were done this morning, none of which showed significant acidemia to explain his PEA. His potassium is 3.7 this morning. White count 6.3, hemoglobin 9.1, platelets 96,000. Chest radiograph showed only minimal increase in interstitial markings. IMPRESSION: Status post pulseless electrical activity after being extubated. He apparently looked like arose just prior to his code and told his heart rate dropped into the 40 and then he was pulseless, but still had electrical activity on the monitor. He really does not appear to suffered significant anoxic or hypoperfusion injury. Hopefully, if he can remain stable for 24-48 hours, we can consider extubation again. He probably needs to be dialyzed in the morning tomorrow first thing. This makes his prognosis quite poor Critical care time was 30 minutes. ROSSANA
[2017-11-04] MEDS: Famotidine/PF 20 mg/2ml Vial SLOW IVP SCH (20:36)
[2017-11-05] MEDS: Amiodarone HCl 450 MG, Admixture Fee 1 EACH in Dextrose 5% in Water 250 ML IVPB SCH ×2 (02:02→17:14)
[2017-11-05] MEDS: Sodium Chloride 0.9% 1,000 ML IV SCH (04:58)
[2017-11-05 05:33] LABS: Anion Gap 14 mmol/L (10-20); BUN (Urea Nitrogen) 21 mg/dL (8.4-25.7); Calc. Creatinine Clearance 35 mL/min (70-130); Calcium 7.9 mg/dL (7.8-10.44); Carbon Dioxide 24 mmol/L (23-31); Chloride 103 mmol/L (98-107); Estimated GFR-MDRD 22; Glucose 103 mg/dL (80-115); Potassium 3.9 mmol/L (3.5-5.1); Sodium 137 mmol/L (136-145)
[2017-11-05 06:28] LABS: Band 39 % (5-11); Hemoglobin 9.1 g/dL (14.0-18.0); Lymphocytes 9 % (21-51); MDiff Complete? YES; Mean Corpuscular HGB CONC 32.5 g/dL (32.0-36.0); Mean Corpuscular Hemoglobin 30.7 pg (27.0-31.0); Mean Corpuscular Volume 94.6 fL (78.0-98.0); Mean Platelet Volume 8.4 fL (7.4-10.4); Metamyelocyte 4 % (0-0); Monocytes 4 % (0-10); Neutrophil 44 % (42-75); PLT Morphology Comment Appears Decreased; Platelet Count 98 thou/uL (130-400); RBC Distribution Width 14.5 % (11.5-14.5); Red Blood Cell (RBC) Count 2.95 mill/uL (4.70-6.10); White Blood Cell (WBC) Count 10.5 thou/uL (4.8-10.8)
[2017-11-05] MEDS: fentaNYL Citrate/PF 2,000 MCG in Sodium Chloride 0.9% 60 ML IV SCH (06:56)
[2017-11-05 08:01] LABS: Actual Bicarbonate (HCO3a) 25.9 mEq/L (22-28); Base Excess (BEa) 3.2 mEq/L (-2.0 to +3.0); CO2 Tension 32.2 mmHg (35.0-45.0); Calcium, Ionized 1.01 mmol/L (1.12-1.30); Carboxyhemoglobin (COHb) 0.9 gm% (0.0-3.0); Hemoglobin (Hb) 9.4 g/dL (14.0-18.0); O2 Tension (PaO2) 91.5 mmHg (> 80.0); pH, Arterial 7.52 (7.35-7.45)
[2017-11-05 08:23] LABS: Puncture Site ALINE
[2017-11-05] MEDS: cycloSPORINE, Modified 25 MG CAP PO SCH (08:48)
--- NOTE | 2017-11-05 09:43 | PDOC.PN ---
- Subjective Encounter Start Date: 11/05/17 Encounter Start Time: 09:42 Mr. Gordon was seen today in follow-up of STEMI, and post CABG. He is intubated, and awake, and following commands. He appears to be comfortable. - Objective Resuscitation Status: Resuscitation Status FULL:Full Resuscitation MAR Reviewed: Yes Vital Signs & Weight: Vital Signs (12 hours) Temp Pulse Resp BP Pulse Ox 11/05/17 08:00 98.7 F 11/05/17 07:45 71 113/62 100 11/05/17 06:00 16 11/05/17 04:00 16 11/05/17 03:31 72 11/05/17 03:00 98.3 F 11/05/17 02:00 16 11/05/17 00:00 16 11/04/17 23:26 71 109/52 L 11/04/17 23:00 98.4 F 11/04/17 22:00 16 Weight Admit Weight 259 lb 4.218 oz Weight 261 lb 11.019 oz Most Recent Monitor Data Heart Rate from ECG 72 NIBP 132/71 NIBP BP-Mean 91 Respiration from ECG 0 SpO2 100 I&O: 11/04/17 11/05/17 11/06/17 06:59 06:59 06:59 Intake Total 2238 981.8 Output Total 500 328 50 Balance 1738 653.8 -50 Result Diagrams: 11/05/17 04:45 11/05/17 04:45 Additional Labs: Accuchecks 11/05/17 11/05/17 11/04/17 04:07 00:21 19:41 POC Glucose 102 108 136 H 11/04/17 11/04/17 11/04/17 16:40 12:35 09:37 POC Glucose 175 H 233 H 99 11/04/17 09:17 POC Glucose 224 H Phys Exam - Physical Examination HEENT: PERRLA Respiratory: no wheezing + occasional rhonchi, and decreased breath sounds at the bases Cardiovascular: RRR, no significant murmur, no rub no gallop Gastrointestinal: soft, non-tender, no distention, positive bowel sounds Musculoskeletal: edema present generalized non-pitting edema Neurological: non-focal Dx/Plan (1) Acute ST elevation myocardial infarction (STEMI) of anterior wall Code(s): I21.09 - STEMI INVOLVING OTH CORONARY ARTERY OF ANTERIOR WALL Status : Acute (2) DM type 2 (diabetes mellitus, type 2) Status: Chronic Qualifiers: Diabetes mellitus shelter insulin use: with shelter use Diabetes mellitus complication detail: with chronic kidney disease Chronic kidney disease stage: stage 3 (moderate) (3) Thrombocytopenia Code(s): D69.6 - THROMBOCYTOPENIA, UNSPECIFIED Status: Acute (4) CKD (chronic kidney disease) stage V requiring chronic dialysis Code(s): N18.6 - END STAGE RENAL DISEASE; Z99.2 - DEPENDENCE ON RENAL DIALYSIS Status: Acute (5) H/O kidney transplant Status: Chronic (6) HTN (hypertension) Code(s): I10 - ESSENTIAL (PRIMARY) HYPERTENSION Status: Chronic Qualifiers: Hypertension type: essential hypertension Qualified Code(s): I10 - Essential (primary) hypertension (7) Multi-vessel coronary artery stenosis Code(s): I25.10 - ATHSCL HEART DISEASE OF [place] CORONARY ARTERY W/O ANG PCTRS Status: Chronic (8) Acute on chronic systolic heart failure, NYHA class 3 Code(s): I50.23 - ACUTE ON CHRONIC SYSTOLIC (CONGESTIVE) HEART FAILURE Status : Acute (9) Afib Code(s): I48.91 - UNSPECIFIED ATRIAL FIBRILLATION Status: Acute - Plan * STEMI- s/p CABG- patient is now off pressors for blood pressure support.. * DM- blood glucose is stable * HTN- blood pressure is stable off pressors * AFIB- this developed after resuscitation- continue Amiodarone * ESRD- continue dialysis as needed * Thrombocytopenia- monitor platelet count- it has dropped close to 50% from admission - Heparin from CABG can be a risk factor for HIT- will monitor closely
--- NOTE | 2017-11-05 09:43 | RAD ---
AP CHEST: History: Ventilator dependent patient. Date: 11-05-17 Comparison: 11-04-17 FINDINGS: AP chest demonstrates a right jugular dialysis catheter in place. There is a Dobbhoff feeding tube. Endotracheal tube is in good position. Left subclavian central line is seen. EKG leads seen overlying the chest. There is moderate cardiomegaly. Pulmonary vascular congestion is seen. Sternotomy wires noted. Again left sided chest tube is in place. IMPRESSION: Cardiomegaly, pulmonary vascular congestion, and multiple lines and tubes in position, unchanged sinc e the previous exam. POS: [facility]
--- NOTE | 2017-11-05 11:22 | PRG ---
DATE OF SERVICE: 11/05/2017 SUBJECTIVE: This is a 66-year-old gentleman being seen for end-stage renal disease. The patient is resting. Following commands. PHYSICAL EXAMINATION: VITAL SIGNS: The patient is afebrile, pulse 70, breathing 16, blood pressure 190/48. HEAD/NECK: Normocephalic. Atraumatic. EYES: EOMI. No deformity. EARS: Clear. No ulcers. NOSE: Intact. No lesions. MOUTH: Clear. No discharge. THROAT: Clear. No exudate. LUNGS: Clear. No crackles. CARDIAC: S1, S2. No rub. ABDOMEN: Benign. BS+. GENITALIA/RECTUM: Yuan absent. BACK/EXTREMITIES: Edema 0+ Ulcer- NEUROLOGICAL: Alert and motor intact. SKIN: Rash- Bruise- LYMPHATICS: Edema- Ulcer- LABORATORY DATA: Show hemoglobin 9.1, potassium 3.9. ASSESSMENT AND RECOMMENDATIONS: 1. Stage 6 chronic kidney disease. We will plan dialysis Tuesday. 2. Hypertension, stable. 3. Anemia, stable. 4. Medications based on glomerular filtration rate are appropriate. 5. Chronic adrenal insufficiency, would recommend Solu-Medrol 40 mg q.8.
--- NOTE | 2017-11-05 12:19 | PDOC.CTH ---
Cardiology Progress Note - Subjective He remains intubated and sedated. - Objective Vital Signs Temp Pulse Resp BP Pulse Ox 11/05/17 11:58 70 126/64 11/05/17 10:00 14 11/05/17 08:00 98.7 F 16 11/05/17 07:45 71 113/62 100 11/05/17 06:00 16 11/05/17 04:00 16 11/05/17 03:31 72 11/05/17 03:00 98.3 F 11/05/17 02:00 16 Admit Weight 259 lb 4.218 oz Weight 261 lb 11.019 oz 11/04/17 11/05/17 11/06/17 06:59 06:59 06:59 Intake Total 2238 981.8 Output Total 500 328 60 Balance 1738 653.8 -60 - Physical Examination General/Neuro: other: (Sedated intubated. ) Lungs: CTA, unlabored respirations Heart: other: (afib HR 80's. ) Abdomen: NT/ND - Telemetry Telemetry Rhythm: Afib HR 70's. - Labs Result Diagrams: 11/05/17 04:45 11/05/17 04:45 Troponin/CKMB CK-MB (CK-2) 14.0 ng/mL (0-6.6) H* 11/04/17 01:29 Troponin I 10.685 ng/mL (< 0.028) H* 11/04/17 01:29 - Assessment/Plan 1. Multivessel CAD, s/p CABG 2. S/P PEA Arrest 3. Post op Afib 4. ESRD on HD 5. S/p Kidney transplant PLAN: - Continue supportive care. - Continue amidarone drip - HD per nephrology - Severely ill and would not be unexpected. - 30 minutes critical care.
[2017-11-05] MEDS ORDERED: Hydrocortisone Sod Succ/PF 100 mg/2 ml Vial IVP SCH (14:00)
--- NOTE | 2017-11-05 16:08 | EKG ---
Test Reason : CHEST PAIN Blood Pressure : / mmHG Vent. Rate : 100 BPM Atrial Rate : 100 BPM P-R Int : 150 ms QRS Dur : 118 ms QT Int : 380 ms P-R-T Axes : 057 070 141 degrees QTc Int : 490 ms Sinus rhythm with frequent , and consecutive Premature ventricular complexes and Fusion complexes Possible Left atrial enlargement Anteroseptal infarct , possibly acute Inferior injury pattern * ACUTE CT * Consider right ventricular involvement in acute inferior infarct Abnormal ECG Confirmed by CARITO DERAS, LYNDSAY ([id number]), news assignment editor ALAN HESTER ([id number]) on 11/05/2017 4:07:55 PM Referred By: Confirmed By:LYNDSAY ARZATE MD
[2017-11-05] MEDS: Insulin Regular 300 UNITS/3 ML VIAL SC PRN (16:19)
[2017-11-05] MEDS: Famotidine/PF 20 mg/2ml Vial SLOW IVP SCH (21:23)
--- NOTE | 2017-11-06 00:44 | PRG ---
DATE OF SERVICE: 11/05/2017 SUBJECTIVE: Mr. Gordon remains mechanically ventilated. We have turned down mechanical ventilatory support again today. I am hoping to may be progress to extubation tomorrow. His heart rate is 70, blood pressure 122/69, respiratory rate 16. We will hold off on restarting his anti-rejection meds. His transplanted kidney really is not functioning at this point. I have explained to his that I would rather keep things as simple as possible until we get him extubated and moving forward. It is still not clear whether or not he will survive the surgery. He has had 230 mL of chest tube drainage out overnight. His urine output is only 98 mL for the previous 24 hours. His intake and output total was positive 653. OBJECTIVE: LUNGS: Clear. HEART: Regular rhythm. ABDOMEN: Soft. LABORATORY DATA: White count is 10.5, hemoglobin 9.1, platelets 98,000. Sodium 137, potassium 3.9, chloride 103, bicarbonate 24, BUN 21, creatinine 3.48. PH 7.52, CO2 of 32, pO2 of 91. IMPRESSION: Respiratory failure. Chest radiograph today shows a significant amount of pulmonary edema. He is tentatively on the schedule to be dialyzed in the morning. I talked with the and answered all her questions by phone this evening. Hopefully, he will continue to make progress. Critical care time, 30 minutes. ROSSANA
[2017-11-06 04:56] LABS: Anion Gap 15 mmol/L (10-20); BUN (Urea Nitrogen) 31 mg/dL (8.4-25.7); Calc. Creatinine Clearance 30 mL/min (70-130); Carbon Dioxide 23 mmol/L (23-31); Chloride 101 mmol/L (98-107); Estimated GFR-MDRD 18; Glucose 128 mg/dL (80-115); Potassium 4.4 mmol/L (3.5-5.1); Sodium 135 mmol/L (136-145)
[2017-11-06] MEDS: Sodium Chloride 0.9% 1,000 ML IV SCH ×3 (05:34→22:05)
[2017-11-06 05:46] LABS: Band 27 % (5-11); Eosinophils 1 % (0-10); Hemoglobin 8.9 g/dL (14.0-18.0); Lymphocytes 7 % (21-51); MDiff Complete? YES; Mean Corpuscular HGB CONC 31.7 g/dL (32.0-36.0); Mean Corpuscular Hemoglobin 30.5 pg (27.0-31.0); Mean Corpuscular Volume 96.3 fL (78.0-98.0); Mean Platelet Volume 8.2 fL (7.4-10.4); Metamyelocyte 4 % (0-0); Monocytes 4 % (0-10); Myelocyte 1 % (0-0); Neutrophil 56 % (42-75); PLT Morphology Comment Appears Decreased; Platelet Count 94 thou/uL (130-400); RBC Distribution Width 14.3 % (11.5-14.5); Red Blood Cell (RBC) Count 2.92 mill/uL (4.70-6.10); White Blood Cell (WBC) Count 9.1 thou/uL (4.8-10.8)
[2017-11-06 07:43] LABS: Actual Bicarbonate (HCO3a) 23.7 mEq/L (22-28); Base Excess (BEa) -0.4 mEq/L (-2.0 to +3.0); CO2 Tension 36.3 mmHg (35.0-45.0); Calcium, Ionized 1.02 mmol/L (1.12-1.30); Hemoglobin (Hb) 9.4 g/dL (14.0-18.0); O2 Tension (PaO2) 92.8 mmHg (> 80.0); Potassium - ABG Lab 4.35 mmol/L (3.70-5.30); pH, Arterial 7.43 (7.35-7.45)
[2017-11-06 08:10] LABS: Puncture Site ALINE
[2017-11-06 08:11] LABS: ALV-art Gradient 218.325 (0-20)
[2017-11-06] MEDS: Insulin Regular 300 UNITS/3 ML VIAL SC PRN ×2 (08:27→12:36)
--- NOTE | 2017-11-06 08:59 | RAD ---
PORTABLE CHEST 1 VIEW: Date: 11/06/17 Time: 0457 hours HISTORY: Respiratory failure. FINDINGS/IMPRESSION: No significant interval change is seen since the previous day's exam. POS: [facility]
[2017-11-06] MEDS ORDERED: Heparin 10,000 UNITS/ 10 ML VIAL ONE (09:00)
[2017-11-06] MEDS: Hydrocortisone Sod Succ/PF 100 mg/2 ml Vial IVP SCH (09:39)
--- NOTE | 2017-11-06 10:07 | PDOC.PN ---
- Subjective Encounter Start Date: 11/06/17 Encounter Start Time: 10:05 cc; stemi sub: pt is on vent support - Objective Resuscitation Status: Resuscitation Status FULL:Full Resuscitation Vital Signs & Weight: Vital Signs (12 hours) Temp Pulse Resp BP Pulse Ox 11/06/17 08:00 97.8 F 11/06/17 07:18 70 130/68 100 11/06/17 06:00 17 11/06/17 04:00 99.1 F 15 11/06/17 02:59 69 11/06/17 02:00 11/06/17 00:00 98.6 F 11/05/17 23:29 70 121/69 Weight Admit Weight 259 lb 4.218 oz Weight 262 lb 5.601 oz Most Recent Monitor Data Heart Rate from ECG 74 NIBP 130/71 NIBP BP-Mean 90 Respiration from ECG 12 SpO2 100 I&O: 11/05/17 11/06/17 11/07/17 06:59 06:59 06:59 Intake Total 981.8 653 Output Total 328 500 30 Balance 653.8 153 -30 Result Diagrams: 11/06/17 10:46 11/06/17 04:16 Additional Labs: Accuchecks 11/06/17 11/06/17 11/06/17 08:22 04:14 00:36 POC Glucose 129 H 127 H 102 11/05/17 11/05/17 11/05/17 21:44 15:58 11:43 POC Glucose 104 131 H 120 H Phys Exam - Physical Examination Constitutional: NAD positive ET tube Neck: no nodes Respiratory: no wheezing on vent support, diminished at bases. positive rhonchi Cardiovascular: RRR, no significant murmur, no rub positive chest tube Gastrointestinal: soft, non-tender, no distention Musculoskeletal: no edema lethargic, not oriented Psychiatric: normal affect Skin: no rash Dx/Plan - Plan * . 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 use Diabetes mellitus complication detail: with chronic kidney disease Chronic kidney disease stage: stage 3 (moderate) (3) Thrombocytopenia Code(s): D69.6 - THROMBOCYTOPENIA, UNSPECIFIED Status: Acute (4) CKD (chronic kidney disease) stage V requiring chronic dialysis Code(s): N18.6 - END STAGE RENAL DISEASE; Z99.2 - DEPENDENCE ON RENAL DIALYSIS Status: Acute (5) H/O kidney transplant Status: Chronic (6) HTN (hypertension) Code(s): I10 - ESSENTIAL (PRIMARY) HYPERTENSION Status: Chronic Qualifiers: Hypertension type: essential hypertension Qualified Code(s): I10 - Essential (primary) hypertension (7) Multi-vessel coronary artery stenosis Code(s): I25.10 - ATHSCL HEART DISEASE OF [place] CORONARY ARTERY W/O ANG PCTRS Status: Chronic (8) Acute on chronic systolic heart failure, NYHA class 3 Code(s): I50.23 - ACUTE ON CHRONIC SYSTOLIC (CONGESTIVE) HEART FAILURE Status : Acute (9) Afib Code(s): I48.91 - UNSPECIFIED ATRIAL FIBRILLATION Status: Acute 10. Acute respiratory failure - Plan * STEMI- s/p CABG- Management per surgery * DM- blood glucose is stable * HTN- blood pressure is stable off pressors * AFIB- this developed after resuscitation- continue Amiodarone * ESRD- continue dialysis as needed * Thrombocytopenia- platelet count still trending down. Will check HIT * Critical care management per PCCM Case d/w pt & RN
[2017-11-06 11:03] LABS: Hemoglobin 8.9 g/dL (14.0-18.0); Platelet Count 84 thou/uL (130-400)
[2017-11-06] MEDS ORDERED: Heparin 1,000 UNITS/ML VIAL ONE (11:11)
--- NOTE | 2017-11-06 11:26 | PRG ---
DATE OF SERVICE: 11/06/2017 SUBJECTIVE: A 66-year-old gentleman, who being seen for end-stage renal disease. The patient is int ubated. PHYSICAL EXAMINATION: GENERAL: Patient is resting. VITAL SIGNS: Afebrile, pulse 75, breathing 16, blood pressure 142/59. GENERAL APPEARANCE AND MENTAL STATUS: Fair. HEAD/NECK: Normocephalic. Atraumatic. EYES: EOMI. No deformity. EARS: Clear. No ulcers. NOSE: Intact. No lesions. MOUTH: Clear. No discharge. THROAT: Clear. No exudate. LUNGS: Clear. No crackles. CARDIAC: S1, S2. No rub. ABDOMEN: Benign. BS+. GENITALIA/RECTUM: Yuan absent. BACK/EXTREMITIES: Edema 0+ Ulcer- NEUROLOGICAL: Alert and motor intact. SKIN: Rash- Bruise- LYMPHATICS: Edema- Ulcer- LABORATORY: Hemoglobin 8.9. ASSESSMENT AND RECOMMENDATIONS: 1. Stage 6 chronic kidney disease, plan dialysis. 2. Hypertension, stable. 3. Anemia, stable. 4. Congestive heart failure. We will plan ultrafiltration today and tomorrow.
--- NOTE | 2017-11-06 17:38 | PDOC.CTH ---
Cardiology Progress Note - Subjective Remains intubated but following commands. - Objective Vital Signs Temp Pulse Resp BP Pulse Ox 11/06/17 16:00 16 11/06/17 14:47 75 130/69 11/06/17 14:00 18 11/06/17 12:00 97.8 F 18 11/06/17 10:00 14 11/06/17 08:00 97.8 F 18 100 11/06/17 07:18 70 130/68 100 11/06/17 06:00 17 Admit Weight 259 lb 4.218 oz Weight 262 lb 5.601 oz 11/05/17 11/06/17 11/07/17 06:59 06:59 06:59 Intake Total 981.8 653 Output Total 328 500 240 Balance 653.8 153 -240 - Physical Examination General/Neuro: other: (Intubated) Neck: no JVD present Lungs: unlabored respirations Heart: other: (Irreg) Abdomen: NT/ND Extremities: + edema B (1+) - Telemetry Telemetry Rhythm: Afib HR 40-70's. - Labs Result Diagrams: 11/06/17 10:46 11/06/17 04:16 Troponin/CKMB CK-MB (CK-2) 14.0 ng/mL (0-6.6) H* 11/04/17 01:29 Troponin I 10.685 ng/mL (< 0.028) H* 11/04/17 01:29 - Assessment/Plan 1. Multivessel CAD, s/p CABG 2. S/P PEA Arrest 3. Post op Afib 4. ESRD on HD 5. S/p Kidney transplant PLAN: - Continue supportive care. - Continue amidarone drip, may hold if bradycardia. - HD per nephrology - 30 minutes critical care.
--- NOTE | 2017-11-06 21:08 | PRG ---
DATE OF SERVICE: 11/06/2017 SUBJECTIVE: Mr. Gordon will awaken. He is tolerating decreased ventilatory support. OBJECTIVE: VITAL SIGNS: His heart rate is in the 70s, blood pressure 133/69, respiratory rate is in the teens. His minute volume is 10-11 liters a minute. LUNGS: Clear. HEART: Regular rhythm. ABDOMEN: Soft. LABORATORY DATA: White count is 10.5, hemoglobin 9.1, platelets 98,000. Sodium 135, potassium 4.4, chloride 101, bicarbonate 23, BUN 31, creatinine 4.14 , pH 7.43, CO2 of 36, pO2 of 92. Chest radiograph shows no new alveolar infiltrates. Chest x-ray is unchanged. IMPRESSION: 1. Respiratory failure. 2. End-stage renal disease, status post transplant failure. 3. Status post pulseless electrical activity arrest. 4. Status post coronary artery bypass grafting. 5. Legal blindness. 6. Diabetes. PLAN: Decrease ventilatory support today and then perhaps consider him for extubation tomorrow, he look extremely well even though he is ahead on volume in the morning before getting dialyzed. It is unclear when I saw him this morning, whether or not he is to be dialyzed today. I would like for him to be on the dry side once we extubate him. Critical care time 30 minutes. I met with the and answered all of her questions. ROSSANA
[2017-11-06] MEDS: fentaNYL Citrate/PF 2,000 MCG in Sodium Chloride 0.9% 60 ML IV SCH (21:10)
[2017-11-06] MEDS: Famotidine/PF 20 mg/2ml Vial SLOW IVP SCH (22:05)
[2017-11-07 05:30] LABS: Anion Gap 17 mmol/L (10-20); BUN (Urea Nitrogen) 24 mg/dL (8.4-25.7); Calc. Creatinine Clearance 40 mL/min (70-130); Calcium 8.3 mg/dL (7.8-10.44); Carbon Dioxide 22 mmol/L (23-31); Chloride 104 mmol/L (98-107); Estimated GFR-MDRD 25; Glucose 116 mg/dL (80-115); Potassium 4.2 mmol/L (3.5-5.1); Sodium 139 mmol/L (136-145)
[2017-11-07 05:34] LABS: Hemoglobin 8.9 g/dL (14.0-18.0); Mean Corpuscular HGB CONC 30.6 g/dL (32.0-36.0); Mean Corpuscular Hemoglobin 29.8 pg (27.0-31.0); Mean Corpuscular Volume 97.4 fL (78.0-98.0); Mean Platelet Volume 8.4 fL (7.4-10.4); Platelet Count 83 thou/uL (130-400); RBC Distribution Width 14.5 % (11.5-14.5); Red Blood Cell (RBC) Count 2.97 mill/uL (4.70-6.10); White Blood Cell (WBC) Count 5.6 thou/uL (4.8-10.8)
[2017-11-07 05:35] LABS: Band 38 % (5-11); Lymphocytes 8 % (21-51); MDiff Complete? YES; Metamyelocyte 6 % (0-0); Monocytes 6 % (0-10); Neutrophil 42 % (42-75); PLT Morphology Comment Appears Decreased
--- NOTE | 2017-11-07 09:00 | RAD ---
CHEST ONE VIEW: History: Dyspnea. Comparison: 11-06-17 FINDINGS: Cardiac silhouette is magnified and enlarged. Pulmonary vasculature upper limits of normal. Right bas ilar infiltrate and opacity at the left base are unchanged. Post-operative changes mediastinum and le ft thoracostomy tube are again demonstrated. Other lines and tubes also unchanged in position. No sheng dence of pneumothorax. IMPRESSION: Bibasilar infiltrates and other findings are stable. POS: [facility]
[2017-11-07] MEDS: Hydrocortisone Sod Succ/PF 100 mg/2 ml Vial IVP SCH (09:20)
[2017-11-07] MEDS ORDERED: Heparin 10,000 UNITS/ 10 ML VIAL ONE (10:00)
--- NOTE | 2017-11-07 10:26 | PRG ---
DATE OF SERVICE: 11/07/2017 Varun Gordon had a good night. He was turned down to a pressure of 45 and 3 of PEEP and did well with that. His chest tube was removed. PHYSICAL EXAMINATION: VITAL SIGNS: His heart rate in the 70s, blood pressure 120/66. LUNGS: Lungs were clear. HEART: Regular rhythm. ABDOMEN: Soft and nontender. EXTREMITIES: Without asymmetry. IMAGING: Chest radiograph shows haziness in the left base as expected after bypass surgery. He has patchy atelectasis at the right base. LABORATORY: White count 5.6, hemoglobin 8.9, platelets 83,000. Sodium 139, potassium 4.2, chloride 104, bicarbonate 22, BUN 24, creatinine 3.1. IMPRESSION: 1. Respiratory failure. He was extubated successfully this morning. Clinically, he is doing well. 2. Blindness. 3. Status post coronary bypass grafting. 4. Status post pulseless electrical activity arrest postoperatively after extubation not triggered b y a respiratory event or a pH event. PLAN: Continue supportive care in the Critical Care Unit. Critical care time was 30 minutes.
--- NOTE | 2017-11-07 14:05 | PDOC.PN ---
- Subjective Encounter Start Date: 11/07/17 Encounter Start Time: 13:15 -: old records requested/rev Pt seen and examined, chart reviewed in its entirety, this is my first visit with this patient Follow up for consultation for medical management post STEMI, CABG, CAD, ESRD on HD, and PEA arrest extubated this AM successfully, doing well. tolerating ice chips. denies pain had afib post op, on amio with some bradycardia, watching No F/C, no n/V/D/C, no CP or SOB, no acute overnight events, no new complaints All systems reviewed and neg for all systems except as stated above - Objective Resuscitation Status: Resuscitation Status FULL:Full Resuscitation MAR Reviewed: Yes Vital Signs & Weight: Vital Signs (12 hours) Temp Pulse Resp Pulse Ox 11/07/17 08:00 100 11/07/17 07:07 78 18 99 11/07/17 07:00 98.3 F 11/07/17 06:00 18 11/07/17 04:00 98.1 F 16 11/07/17 02:22 73 Weight Admit Weight 259 lb 4.218 oz Weight 4.099 oz Most Recent Monitor Data Heart Rate from ECG 72 NIBP 115/52 NIBP BP-Mean 73 Respiration from ECG 23 SpO2 100 I&O: 11/06/17 11/07/17 11/08/17 06:59 06:59 06:59 Intake Total 653 376.6 20 Output Total 500 490 0 Balance 153 -113.4 20 Result Diagrams: 11/07/17 04:50 11/07/17 04:50 Additional Labs: Accuchecks 11/07/17 11/07/17 11/06/17 04:04 02:04 16:18 POC Glucose 110 108 97 Radiology Reviewed by me: Yes EKG Reviewed by me: Yes Phys Exam - Physical Examination Constitutional: NAD chronically ill appearing, sleepy HEENT: PERRLA, moist MMs, sclera anicteric, oral pharynx no lesions Neck: no nodes, no JVD, supple, full ROM Respiratory: no wheezing, no rhonchi bibasilar rales posteriorly Cardiovascular: RRR, no significant murmur faint pericardial rub Gastrointestinal: soft, non-tender, no distention, positive bowel sounds Musculoskeletal: edema present Neurological: non-focal, normal sensation, moves all 4 limbs Lymphatic: no nodes Psychiatric: A&O x 3 Skin: no rash, normal turgor, cap refill <2 seconds Dx/Plan (1) Acute ST elevation myocardial infarction (STEMI) of anterior wall Code(s): I21.09 - STEMI INVOLVING OTH CORONARY ARTERY OF ANTERIOR WALL Status : Acute (2) Afib Code(s): I48.91 - UNSPECIFIED ATRIAL FIBRILLATION Status: Acute Qualifiers: Atrial fibrillation type: paroxysmal Qualified Code(s): I48.0 - Paroxysmal atrial fibrillation (3) Anemia of renal disease Code(s): D63.1 - ANEMIA IN CHRONIC KIDNEY DISEASE Status: Chronic (4) CKD (chronic kidney disease) stage V requiring chronic dialysis Code(s): N18.6 - END STAGE RENAL DISEASE; Z99.2 - DEPENDENCE ON RENAL DIALYSIS Status: Chronic (5) DM type 2 (diabetes mellitus, type 2) Status: Chronic Qualifiers: Diabetes mellitus salvage determiner insulin use: with custodial use Diabetes mellitus complication detail: with chronic kidney disease Chronic kidney disease stage: stage 3 (moderate) (6) Dyslipidemia Code(s): E78.5 - HYPERLIPIDEMIA, UNSPECIFIED Status: Chronic (7) GERD (gastroesophageal reflux disease) Code(s): K21.9 - GASTRO-ESOPHAGEAL REFLUX DISEASE WITHOUT ESOPHAGITIS Status: Chronic Qualifiers: Esophagitis presence: without esophagitis Qualified Code(s): K21.9 - Gastro -esophageal reflux disease without esophagitis (8) HTN (hypertension) Code(s): I10 - ESSENTIAL (PRIMARY) HYPERTENSION Status: Chronic Qualifiers: Hypertension type: essential hypertension Qualified Code(s): I10 - Essential (primary) hypertension (9) Ischemic cardiomyopathy Code(s): I25.5 - ISCHEMIC CARDIOMYOPATHY Status: Chronic - Plan cont current plan of care, PT/OT, respiratory therapy, incentive spirometry, out of bed/ambulate * . continue to monitor, routine post op CABG care. Pt progressing as expected
--- NOTE | 2017-11-07 17:52 | PRG ---
DATE OF SERVICE: 11/07/2017 SUBJECTIVE: Patient was seen and examined at bedside and overnight events noted. Patient denies any shortness of breath or chest pain or palpitation. No history of nausea or vomiting or diarrhea or f ever or chills or cramps. OBJECTIVE: GENERAL: This is a well-built male in no apparent distress. VITAL SIGNS: Temperature 98.2, pulse 72, respiratory rate 18, blood pressure 132/58. HEENT: Atraumatic, normocephalic. Oral mucosa is moist NECK: Supple CARDIOVASCULAR: S1, S2 heard. Rate and rhythm regular. RESPIRATORY: Clear to auscultation. GASTROINTESTINAL: Abdomen is soft. MUSCULOSKELETAL: No tenderness. 1+ edema. DERMATOLOGIC: No skin rash. NEUROLOGIC: Alert, awake, and oriented x3. No focal neurologic deficits. Moving all the extremitie s. PSYCHIATRIC: Mood and affect normal. LABORATORY DATA: Potassium is 4.2, BUN is 24, creatinine is 3.1. ASSESSMENT AND PLAN: 1. End-stage renal disease. We will continue on dialysis, most likely Tuesday, Tuesday, and Tuesday . 2. Fluid overload. Remove fluid with dialysis as tolerated. 3. Hypertension, stable. 4. Anemia. We will add Epogen with dialysis and monitor. We will follow.
[2017-11-07] MEDS ORDERED: Morphine 2 MG/ML SYRINGE SLOW IVP SCH (22:45)
[2017-11-07] MEDS: Famotidine/PF 20 mg/2ml Vial SLOW IVP SCH (22:45)
[2017-11-07] MEDS: Atorvastatin Calcium 40 MG TAB PO SCH (22:46)
[2017-11-08] MEDS ORDERED: EPINEPHrine 1 MG/10 ML Abboject SYRINGE ONE (01:00)
[2017-11-08] MEDS ORDERED: Ventilator Sedation Protocol 1 EACH FS ONE (02:02)
--- NOTE | 2017-11-08 02:02 | PDOC.EVN ---
Event Note - Event Note Event Note: pt became unresponsive, went into respiratory distress, needing intubation, hypotensive needing vasopressors, please see code sheet for details. consultants updated. abg,cxr pending , will follow.
--- NOTE | 2017-11-08 02:10 | PDOC.EVN ---
Event Note - Event Note Event Note: Code una called at approx 0130, responded as code team. Pt reported to have stopped breathing, being bagged. No respiratory drive/ability to maintain airway. Hypotensive, pressors via central line with improvement. Need for adequate airway determined. Intubation successfull on 3rd attempted with glide scope and 7.5 ET, RSI meds etom/succ. CO2 recorder postive, b/l lung sounds auscultated. CXR showing correct placement.
[2017-11-08] MEDS ORDERED: Lorazepam 2 MG/ML VIAL SLOW IVP PRN (02:12)
[2017-11-08] MEDS ORDERED: Fentanyl BOLUS 250 ML IVPB PRN (02:12)
[2017-11-08] MEDS ORDERED: Propofol BOLUS 1,000 MG/100 ML VIAL IV PRN (02:12)
[2017-11-08] MEDS ORDERED: DISCONTINUE PREVIOUS NARCOTIC PAIN MEDICATIONS AND BENZODIAZEPINES FS SCH (02:12)
[2017-11-08] MEDS: Propofol 1,000 MG/100 ML VIAL IV PRN ×3 (02:25→20:40)
[2017-11-08 02:41] LABS: Actual Bicarbonate (HCO3a) 19.6 mEq/L (22-28); Base Excess (BEa) -6.1 mEq/L (-2.0 to +3.0); Calcium, Ionized 1.12 mmol/L (1.12-1.30); Carboxyhemoglobin (COHb) 0.6 gm% (0.0-3.0); Hemoglobin (Hb) 9.7 g/dL (14.0-18.0); O2 Tension (PaO2) 145.6 mmHg (> 80.0); Potassium - ABG Lab 3.91 mmol/L (3.70-5.30); pH, Arterial 7.32 (7.35-7.45)
[2017-11-08 02:42] LABS: Puncture Site R RADIAL
[2017-11-08] MEDS ORDERED: Norepinephrine 8 MG/250 ML BAG IVPB PRN (02:54)
[2017-11-08 03:19] LABS: Mean Corpuscular HGB CONC 30.5 g/dL (32.0-36.0); Mean Corpuscular Hemoglobin 30.5 pg (27.0-31.0); Mean Corpuscular Volume 99.8 fL (78.0-98.0); Mean Platelet Volume 8.6 fL (7.4-10.4); Platelet Count 85 thou/uL (130-400); RBC Distribution Width 14.7 % (11.5-14.5); Red Blood Cell (RBC) Count 2.96 mill/uL (4.70-6.10); White Blood Cell (WBC) Count 7.1 thou/uL (4.8-10.8)
[2017-11-08 03:37] LABS: Anion Gap 17 mmol/L (10-20); BUN (Urea Nitrogen) 19 mg/dL (8.4-25.7); Calc. Creatinine Clearance 46 mL/min (70-130); Calcium 8.5 mg/dL (7.8-10.44); Carbon Dioxide 23 mmol/L (23-31); Chloride 103 mmol/L (98-107); Estimated GFR-MDRD 30; Glucose 134 mg/dL (80-115); Potassium 4.3 mmol/L (3.5-5.1); Sodium 139 mmol/L (136-145)
[2017-11-08 03:50] LABS: Band 37 % (5-11); Dohle Bodies SLIGHT; Lymphocytes 24 % (21-51); MDiff Complete? YES; Metamyelocyte 5 % (0-0); Monocytes 3 % (0-10); Myelocyte 2 % (0-0); Neutrophil 29 % (42-75); PLT Morphology Comment Appears Decreased; Toxic Granulation SLIGHT
[2017-11-08 07:13] LABS: Actual Bicarbonate (HCO3a) 22.2 mEq/L (22-28); Base Excess (BEa) -2.3 mEq/L (-2.0 to +3.0); CO2 Tension 37.1 mmHg (35.0-45.0); Calcium, Ionized 1.12 mmol/L (1.12-1.30); Carboxyhemoglobin (COHb) 1.3 gm% (0.0-3.0); Hemoglobin (Hb) 9.5 g/dL (14.0-18.0); O2 Tension (PaO2) 86.2 mmHg (> 80.0); Potassium - ABG Lab 3.76 mmol/L (3.70-5.30)
[2017-11-08 07:33] LABS: ALV-art Gradient 437.825 (0-20)
--- NOTE | 2017-11-08 08:10 | RAD ---
CHEST ONE VIEW: History: Dyspnea. Intubated. Comparison: 11-08-17 FINDINGS: Cardiac silhouette is magnified, enlarged, and partially obscured by bibasilar infiltrates and pleura l fluid, similar in appearance to the prior exam. Pulmonary vasculature remains engorged with patchy bilateral perihilar infiltrates. Mediastinum is midline. Nasogastric tube now descends to the abdomen . Other lines and tubes are unchanged in position. IMPRESSION: Nasogastric tube placement, descending to the abdomen. Pulmonary edema, pleural fluid, and other findings are otherwise stable. POS: [facility]
--- NOTE | 2017-11-08 08:20 | RAD ---
CHEST ONE VIEW: History: Dyspnea. Follow up. Comparison: 11-07-17 FINDINGS: Cardiac silhouette is magnified and enlarged. Pulmonary vasculature more engorged than on the previou s study. Increasing bibasilar infiltrates. Mediastinum is midline. Nasogastric tube and left thoracos galen tube are no longer visible. Endotracheal catheter and right subclavian central venous catheter r emain in place. No significant pneumothorax. IMPRESSION: 1. Interval worsening or pulmonary edema. 2. Removal of the nasogastric tube and left thoracostomy tube. POS: [facility]
[2017-11-08] MEDS ORDERED: Heparin 10,000 UNITS/ 10 ML VIAL ONE (09:00)
[2017-11-08] MEDS: Hydrocortisone Sod Succ/PF 100 mg/2 ml Vial IVP SCH (09:14)
[2017-11-08 11:03] LABS: Hemoglobin 9.3 g/dL (14.0-18.0); Platelet Count 71 thou/uL (130-400)
[2017-11-08] MEDS ORDERED: Albumin 25% 25 GM/100 ML BOT IVPB PRN (12:09)
--- NOTE | 2017-11-08 13:45 | PDOC.PN ---
- Subjective Encounter Start Date: 11/08/17 Encounter Start Time: 08:55 -: non-verbal, old records requested/rev events noted. pt went into resp arrest, code called, intubated on 3rd attempt stable afterwards. sedated on vents. chart reviewed ROs not obtainable due to sedated and intubated status - Objective Resuscitation Status: Resuscitation Status FULL:Full Resuscitation MAR Reviewed: Yes Vital Signs & Weight: Vital Signs (12 hours) Temp Pulse Resp BP Pulse Ox 11/08/17 12:00 98.1 F 27 H 11/08/17 10:33 72 98/47 L 11/08/17 10:00 27 H 11/08/17 08:00 32 H 11/08/17 07:13 100 11/08/17 06:51 71 112/58 L 11/08/17 04:00 97.9 F 27 H 100 11/08/17 02:07 99 11/08/17 02:02 28 H 11/08/17 02:00 85 134/74 Weight Admit Weight 259 lb 4.218 oz Weight 250 lb 3.594 oz Most Recent Monitor Data Heart Rate from ECG 68 NIBP 88/46 NIBP BP-Mean 60 Respiration from ECG 8 SpO2 100 I&O: 11/07/17 11/08/17 11/09/17 06:59 06:59 06:59 Intake Total 376.6 160.9 0 Output Total 490 100 0 Balance -113.4 60.9 0 Result Diagrams: 11/08/17 10:40 11/08/17 02:00 Additional Labs: Accuchecks 11/08/17 11/08/17 11/08/17 04:31 02:01 00:42 POC Glucose 122 H 138 H 114 H 11/07/17 11/07/17 21:17 13:41 POC Glucose 100 99 Radiology Reviewed by me: Yes EKG Reviewed by me: Yes Phys Exam - Physical Examination Constitutional: NAD HEENT: PERRLA, moist MMs, sclera anicteric, oral pharynx no lesions Neck: no nodes, no JVD, supple, full ROM Respiratory: clear to auscultation bilateral Cardiovascular: RRR, no significant murmur, no rub Gastrointestinal: soft, non-tender, no distention, positive bowel sounds Musculoskeletal: edema present Lymphatic: no nodes Deviation from normal: sedated on vent Skin: no rash, normal turgor, cap refill <2 seconds Deviation from normal: Left SC CVC, right tunneled IJ catheter C/D/I Dx/Plan (1) Acute ST elevation myocardial infarction (STEMI) of anterior wall Code(s): I21.09 - STEMI INVOLVING OTH CORONARY ARTERY OF ANTERIOR WALL Status : Acute (2) Afib Code(s): I48.91 - UNSPECIFIED ATRIAL FIBRILLATION Status: Acute Qualifiers: Atrial fibrillation type: paroxysmal Qualified Code(s): I48.0 - Paroxysmal atrial fibrillation (3) Anemia of renal disease Code(s): D63.1 - ANEMIA IN CHRONIC KIDNEY DISEASE Status: Chronic (4) CKD (chronic kidney disease) stage V requiring chronic dialysis Code(s): N18.6 - END STAGE RENAL DISEASE; Z99.2 - DEPENDENCE ON RENAL DIALYSIS Status: Chronic (5) DM type 2 (diabetes mellitus, type 2) Status: Chronic Qualifiers: Diabetes mellitus 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 insulin 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 Diabetes mellitus complication detail: with chronic kidney disease Chronic kidney disease stage: stage 3 (moderate) (6) Dyslipidemia Code(s): E78.5 - HYPERLIPIDEMIA, UNSPECIFIED Status: Chronic (7) GERD (gastroesophageal reflux disease) Code(s): K21.9 - GASTRO-ESOPHAGEAL REFLUX DISEASE WITHOUT ESOPHAGITIS Status: Chronic Qualifiers: Esophagitis presence: without esophagitis Qualified Code(s): K21.9 - Gastro -esophageal reflux disease without esophagitis (8) HTN (hypertension) Code(s): I10 - ESSENTIAL (PRIMARY) HYPERTENSION Status: Chronic Qualifiers: Hypertension type: essential hypertension Qualified Code(s): I10 - Essential (primary) hypertension (9) Ischemic cardiomyopathy Code(s): I25.5 - ISCHEMIC CARDIOMYOPATHY Status: Chronic (10) Respiratory arrest Code(s): R09.2 - RESPIRATORY ARREST Status: Acute Comment: intubated on vent - Plan cont current plan of care, continue antibiotics, 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
--- NOTE | 2017-11-08 16:31 | PRG ---
DATE OF SERVICE: 11/08/2017 SUBJECTIVE: Mr. Gordon rolled over on his side for a bath last night and apparently developed apnea. He was intubated. He was placed on pressors. He was intubated. Chest radiograph this morning showed volume overload. He is currently being dialyzed. OBJECTIVE: LUNGS: Clear. HEART: Regular rhythm. ABDOMEN: Soft. LABORATORY DATA: White count 7.1, hemoglobin 9, platelets 85,000. Sodium 139, potassium is 4.3, chloride 103, bicarb 23, BUN 19, creatinine 2.59. A pH 7.4, CO2 37, pO2 86, pH 7.32 after intubation. IMPRESSION: Status post respiratory arrest of unclear etiology, it is unclear to me whether or not he had just a loss of a pulse, i.e., PEA. There is no bradycardia or tachycardia reported by the nurses. Unfortunately, Mr. Gordon will end up with a tracheostomy once he is far enough out from his sternotomy. Decisions regarding whether or not he will need a pacemaker will need to be made. He still has pacer wires in place. Critical care time was 30 minutes. [facility]
[2017-11-08] MEDS: Atorvastatin Calcium 40 MG TAB PO SCH (20:39)
[2017-11-08] MEDS: Famotidine/PF 20 mg/2ml Vial SLOW IVP SCH (20:39)
--- NOTE | 2017-11-08 20:45 | PRG ---
DATE OF SERVICE: 11/08/2017 SUBJECTIVE: The patient was seen and examined in ICU. The patient got intubated yesterday and had a code and respiratory distress. OBJECTIVE: GENERAL: This is a well-built male seen in ICU, intubated. VITAL SIGNS: Temperature 98.1, pulse 69, respiratory rate 18, and blood pressure 94/51. HEENT: Intubated. CARDIOVASCULAR: S1 and S2 heard. RESPIRATORY: Clear. ABDOMEN: Soft. MUSCULOSKELETAL: 1+ edema. DERMATOLOGIC: No skin rash. NEUROLOGIC: Intubated. LABORATORY DATA: Potassium 4.3, BUN 19, creatinine is 2.5. ASSESSMENT AND PLAN: 1. End-stage renal disease on hemodialysis. Prognosis guarded. Patient is high risk for dialysis. The patient had guarding to be reintubated yesterday for respiratory distress and possible fluid ove rload. Plan is to have dialysis today for fluid removal. We will have only ultrafiltration only tod ay for 4 hours attempted to remove 4 liters off as tolerated. 2. Hypertension, complicating fluid removal with dialysis and fluid overload. 3. Acute hypoxic respiratory failure, intubated. 4. History of hypertension. 5. Anemia. We will add Epogen with dialysis. 6. Prognosis guarded. We will attempt to have dialysis as tolerated. No family members available. We will continue . We will have dialysis today for ultrafiltration only. We will follow.
[2017-11-09] MEDS: Norepinephrine 8 MG/0.9% NS 250 ML IVPB PRN ×2 (00:30→09:44)
[2017-11-09 04:44] LABS: Anion Gap 19 mmol/L (10-20); BUN (Urea Nitrogen) 30 mg/dL (8.4-25.7); Calc. Creatinine Clearance 35 mL/min (70-130); Calcium 8.8 mg/dL (7.8-10.44); Carbon Dioxide 22 mmol/L (23-31); Chloride 103 mmol/L (98-107); Estimated GFR-MDRD 22; Glucose 130 mg/dL (80-115); Potassium 4.4 mmol/L (3.5-5.1); Sodium 140 mmol/L (136-145)
[2017-11-09 05:31] LABS: Band 32 % (5-11); Hemoglobin 8.7 g/dL (14.0-18.0); Lymphocytes 24 % (21-51); MDiff Complete? YES; Mean Corpuscular Hemoglobin 30.3 pg (27.0-31.0); Mean Corpuscular Volume 97.9 fL (78.0-98.0); Mean Platelet Volume 8.7 fL (7.4-10.4); Metamyelocyte 3 % (0-0); Monocytes 10 % (0-10); Myelocyte 1 % (0-0); Neutrophil 29 % (42-75); PLT Morphology Comment Appears Decreased; Platelet Count 52 thou/uL (130-400); RBC Distribution Width 14.7 % (11.5-14.5); Reactive Lymphocytes 1 % (0-10); Red Blood Cell (RBC) Count 2.87 mill/uL (4.70-6.10); Toxic Granulation SLIGHT; White Blood Cell (WBC) Count 4.4 thou/uL (4.8-10.8)
[2017-11-09 05:46] VITALS: BMI 34.2
[2017-11-09] MEDS: Propofol 1,000 MG/100 ML VIAL IV PRN (06:22)
[2017-11-09 07:44] LABS: Actual Bicarbonate (HCO3a) 20.9 mEq/L (22-28); Base Excess (BEa) -4.3 mEq/L (-2.0 to +3.0); CO2 Tension 38.3 mmHg (35.0-45.0); Calcium, Ionized 1.13 mmol/L (1.12-1.30); Hemoglobin (Hb) 9.9 g/dL (14.0-18.0); O2 Tension (PaO2) 76.5 mmHg (> 80.0); Potassium - ABG Lab 4.45 mmol/L (3.70-5.30); pH, Arterial 7.35 (7.35-7.45)
[2017-11-09 08:08] LABS: ALV-art Gradient 232.125 (0-20)
[2017-11-09] MEDS: Hydrocortisone Sod Succ/PF 100 mg/2 ml Vial IVP SCH (08:29)
[2017-11-09 08:57] LABS: Actual Bicarbonate (HCO3a) 18.6 mEq/L (22-28); Analyzer IN Cardio OR; Base Excess (BEa) -6.8 mEq/L (-2.0 to +3.0); CO2 Tension 36.8 mmHg (35.0-45.0); Calcium, Ionized 1.06 mmol/L (1.12-1.30); Carboxyhemoglobin (COHb) 0.2 gm% (0.0-3.0); Hemoglobin (Hb) 9.7 g/dL (14.0-18.0); O2 Tension (PaO2) 217.2 mmHg (> 80.0); Potassium - ABG Lab 3.17 mmol/L (3.70-5.30); pH, Arterial 7.32 (7.35-7.45)
[2017-11-09 08:57] LABS: Actual Bicarbonate (HCO3a) 22.9 mEq/L (22-28); Analyzer IN Cardio OR; Base Excess (BEa) -1.6 mEq/L (-2.0 to +3.0); Calcium, Ionized 1.04 mmol/L (1.12-1.30); Carboxyhemoglobin (COHb) 1.3 gm% (0.0-3.0); Hemoglobin (Hb) 6.6 g/dL (14.0-18.0); O2 Tension (PaO2) 174.6 mmHg (> 80.0); Potassium - ABG Lab 3.36 mmol/L (3.70-5.30); pH, Arterial 7.41 (7.35-7.45)
[2017-11-09 08:57] LABS: Actual Bicarbonate (HCO3a) 24.9 mEq/L (22-28); Analyzer IN Cardio OR; Base Excess (BEa) -1.1 mEq/L (-2.0 to +3.0); Calcium, Ionized 1.18 mmol/L (1.12-1.30); Carboxyhemoglobin (COHb) 0.7 gm% (0.0-3.0); Hemoglobin (Hb) 7.6 g/dL (14.0-18.0); O2 Tension (PaO2) 424.9 mmHg (> 80.0); Potassium - ABG Lab 3.89 mmol/L (3.70-5.30); pH, Arterial 7.33 (7.35-7.45)
[2017-11-09 08:58] LABS: Actual Bicarbonate (HCO3v) 24 mEq/L (22-28); Analyzer IN Cardio OR; Base Excess -1.4 mEq/L (-2.0 to +3.0); Calcium, Ionized 1.03 mmol/L (1.16-1.32); Chloride (ABG LAB) 105 mmol/L (98-106); Hemoglobin (Hb) 6.7 g/dL (12.6-17.4); Potassium - ABG Lab 3.79 mmol/L (3.70-5.30); Sodium 132.7 mmol/L (133-146); pH (venous) 7.38 (7.32-7.43)
[2017-11-09 08:58] LABS: Actual Bicarbonate (HCO3a) 23.1 mEq/L (22-28); Analyzer IN Cardio OR; Base Excess (BEa) -3.2 mEq/L (-2.0 to +3.0); CO2 Tension 47.6 mmHg (35.0-45.0); Calcium, Ionized 1.03 mmol/L (1.12-1.30); Carboxyhemoglobin (COHb) 0.8 gm% (0.0-3.0); Hemoglobin (Hb) 7.7 g/dL (14.0-18.0); O2 Tension (PaO2) 409.6 mmHg (> 80.0); Potassium - ABG Lab 3.95 mmol/L (3.70-5.30)
[2017-11-09 08:59] LABS: Actual Bicarbonate (HCO3a) 22.7 mEq/L (22-28); Analyzer IN Cardio OR; Base Excess (BEa) -0.9 mEq/L (-2.0 to +3.0); CO2 Tension 33.1 mmHg (35.0-45.0); Calcium, Ionized 1.02 mmol/L (1.12-1.30); Carboxyhemoglobin (COHb) 0.5 gm% (0.0-3.0); Hemoglobin (Hb) 8.4 g/dL (14.0-18.0); O2 Tension (PaO2) 334.4 mmHg (> 80.0); Puncture Site ALINE; pH, Arterial 7.45 (7.35-7.45)
[2017-11-09 08:59] LABS: Actual Bicarbonate (HCO3a) 23.8 mEq/L (22-28); Analyzer IN Cardio OR; Base Excess (BEa) -0.5 mEq/L (-2.0 to +3.0); Calcium, Ionized 1.01 mmol/L (1.12-1.30); Hemoglobin (Hb) 6.6 g/dL (14.0-18.0); O2 Tension (PaO2) 429.3 mmHg (> 80.0); Potassium - ABG Lab 3.83 mmol/L (3.70-5.30); pH, Arterial 7.43 (7.35-7.45)
[2017-11-09 09:00] LABS: Puncture Site ALINE
[2017-11-09] MEDS ORDERED: Amiodarone HCl 150 MG in Dextrose 5% in Water 100 ML IVPB SCH (09:00)
[2017-11-09] MEDS ORDERED: Amiodarone 200 MG TAB PER TUBE SCH (09:00)
[2017-11-09] MEDS ORDERED: Epoetin (ESRD) 10,000 UNITS/ML VIAL IVP SCH (09:00)
[2017-11-09 09:01] LABS: Puncture Site ALINE
[2017-11-09 09:01] LABS: Puncture Site ALINE
[2017-11-09 09:01] LABS: Puncture Site ALINE
[2017-11-09 09:02] LABS: Puncture Site ALINE
[2017-11-09] MEDS ORDERED: Vasopressin 40 UNIT, Admixture Fee 1 EACH in Sodium Chloride 0.9% 100 ML IV SCH (09:15)
[2017-11-09 09:16] LABS: Base Excess (BEa) -12.6 mEq/L (-2.0 to +3.0); CO2 Tension 41.5 mmHg (35.0-45.0); Calcium, Ionized 1.08 mmol/L (1.12-1.30); Carboxyhemoglobin (COHb) 0.5 gm% (0.0-3.0); Hemoglobin (Hb) 8.8 g/dL (14.0-18.0)
[2017-11-09 09:17] LABS: pH, Arterial 7.18 (7.35-7.45)
[2017-11-09 09:18] LABS: ALV-art Gradient 599.125 (0-20); Puncture Site LINE
[2017-11-09] MEDS: Amiodarone HCl 450 MG, Admixture Fee 1 EACH in Dextrose 5% in Water 250 ML IVPB SCH (09:28)
[2017-11-09] MEDS ORDERED: Sodium Bicarb 50 MEQ/50 ML Abboject 8.4% SYRINGE ONE (10:00)
[2017-11-09] MEDS ORDERED: EPINEPHrine 1 MG/10 ML Abboject SYRINGE ONE (10:00)
--- NOTE | 2017-11-09 10:06 | OP ---
DATE OF PROCEDURE: 11/09/2017 PROCEDURE PERFORMED: Right femoral arterial line. PREOPERATIVE DIAGNOSIS: Status post ventricular fibrillation arrest. POSTOPERATIVE DIAGNOSIS: Status post ventricular fibrillation arrest. SURGEON: Martín Mejía M.D. ANESTHESIA: None. INDICATIONS: The patient is a rather fragile 66-year-old man who underwent coronary artery bypass gr afting about a week ago. He had a witnessed ventricular fibrillation arrest and was successfully res uscitated. A femoral arterial line is being placed for pressure monitoring and frequent blood sampli ng including arterial blood gases. NARRATIVE REPORT: The patient's right groin was prepped and draped in sterile fashion and a femoral arterial line kit was used to cannulate the right femoral artery with a large bore needle. A guidewi re was placed through the needle and by the Seldinger technique, a 5-Gabonese catheter was inserted ove r the wire. There was good pulsatile waveform on the pressure tracing and the line flushed easily. The line was secured and dressed.
[2017-11-09 10:12] VITALS: TEMP 98.3
[2017-11-09 10:34] VITALS: BP 127/41
[2017-11-09 10:51] LABS: Base Excess (BEa) -7.2 mEq/L (-2.0 to +3.0); Calcium, Ionized 1.04 mmol/L (1.12-1.30); Carboxyhemoglobin (COHb) 0.4 gm% (0.0-3.0); Hemoglobin (Hb) 8.6 g/dL (14.0-18.0); O2 Tension (PaO2) 202.7 mmHg (> 80.0); Potassium - ABG Lab 4.29 mmol/L (3.70-5.30); pH, Arterial 7.33 (7.35-7.45)
[2017-11-09 10:54] LABS: Puncture Site LINE
[2017-11-09 13:53] LABS: Actual Bicarbonate (HCO3a) 11.4 mEq/L (22-28); Base Excess (BEa) -17.4 mEq/L (-2.0 to +3.0); Calcium, Ionized 1.05 mmol/L (1.12-1.30); Carboxyhemoglobin (COHb) 0.6 gm% (0.0-3.0); Hemoglobin (Hb) 9.1 g/dL (14.0-18.0); O2 Tension (PaO2) 70.4 mmHg (> 80.0); Potassium - ABG Lab 4.91 mmol/L (3.70-5.30)
[2017-11-09 13:54] LABS: pH, Arterial 7.08 (7.35-7.45)
[2017-11-09 13:56] LABS: Puncture Site ALINE
[2017-11-09] MEDS ORDERED: EPINEPHrine 4 MG in Dextrose 5% in Water 250 ML IV SCH (14:00)
--- NOTE | 2017-11-09 17:13 | PRG ---
DATE OF SERVICE: 11/09/2017 NEPHROLOGY PROGRESS NOTE SUBJECTIVE: The patient was seen and examined in ICU. He had a code this morning. His blood pressu re 70s/30s. His family members at the bedside. OBJECTIVE: GENERAL: A well-built male seen in ICU. VITAL SIGNS: Temperature 98.3, pulse 94, respiratory rate 20, blood pressure 73/27. HEENT: Intubated. CARDIOVASCULAR: S1, S2 heard. RESPIRATORY: Clear. ABDOMEN: Soft. MUSCULOSKELETAL: No tenderness. No edema. DERMATOLOGIC: No skin rash. NEUROLOGIC: Intubated. LABORATORY DATA: Potassium 4.4, BUN 30, creatinine 3.3. Chest x-ray with fluid overload. ASSESSMENT AND PLAN: 1. End-stage renal disease. The patient is high risk for dialysis. The patient is having multiple codes and the patient is high risk for arrhythmias during dialysis. Family was conveyed of the same and to decide on further dialysis. 2. Acute hypoxic respiratory failure. 3. Fluid overload. 4. Hypertension. 5. Anemia. May be high risk for dialysis and family is aware. No acute indication for dialysis today. We will follow.
--- NOTE | 2017-11-09 18:27 | PRG ---
DATE OF SERVICE: 11/09/2017 SUBJECTIVE: Mr. Gordon had ventricular fibrillation arrest this morning. He has been hypotensive all day long. He has been unresponsive. I met with family multiple times throughout the day. OBJECTIVE: LUNGS: Clear. HEART: Regular rhythm. ABDOMEN: Soft. He had a metabolic acidosis after his code as expected that was corrected with bicar bonate and increase mechanical ventilation. LABORATORY DATA: White count is 4.4, hemoglobin 8.7, platelets 52,000. BUN was 30, creatinine 3.37. Blood gas done at 2:00 showed a pH 7.08. He eventually developed an arrest and family did not want him resuscitated. Met with family after he passed. I answered all their questions.
--- NOTE | 2017-11-11 11:22 | DIS ---
DATE OF ADMISSION: 10/31/2017 DATE OF : 11/10/2017 PRINCIPAL DIAGNOSIS: Coronary artery disease, ischemic cardiomyopathy, status post ST elevation myoc ardial infarction. PROCEDURES PERFORMED: Cardiac catheterization, 10/31/2017; coronary artery bypass grafting x3, 11/02. SECONDARY DIAGNOSES: End-stage renal disease, status post failed renal transplant, hypertension, tracie betes, HISTORY OF PRESENT ILLNESS AND HOSPITAL COURSE: The patient is a 66-year-old man who underwent a irving al transplantation about 20 years ago. This past Summer after a myocardial infarction, he underwent cardiac catheterization and since then has required hemodialysis for failure of his transplanted hetal watson. He presented with stuttering pattern of chest pain and cardiac catheterization demonstrated michael re 3-vessel coronary artery disease with left main involvement. Echocardiography demonstrated an EF of around 25-30%, though high risk, it was felt that his only real long-term option was surgical alec scularization. He underwent coronary artery bypass grafting on 11/02/2017 and on 11/03/2017 was extu bated. That night, he had profound bradycardia that progressed to PEA with responsiveness to pacing electrically but no generated pulse. He was coded and resuscitated coming back in atrial fibrillatio n. Echocardiography few hours following the resuscitation showed a similar EF with no new wall motio n abnormalities. He was supported and gradually improved over the next several days and was again ex tubated, had respiratory arrest later that night and was re-intubated. On the morning of his , he had a witnessed ventricular fibrillation arrest and was resuscitated, but he remained dependent on high dose pressors following his cardioversion and he gradually failed during the course of the day, his family expressed that it would not have been his wish to pursue this and in fact, he was pursuin g surgical revascularization merely for their benefit rather than his own particular desires in light of his wishes as expressed to his family and the obvious futility. He was made a DNR and no further heroic efforts were made, and he that afternoon.
[2017-11-13 14:51] LABS: Heparin-Induced Ab (HITA) Negative (Negative)
== END 2017-11-09 14:22 | disposition expired | DRG 233 ==
LOC: ERS 09:09 → CCL 09:54 → CCU 10:06
PROVIDERS: ADMIT Internal Medicine Cardiovascular Disease; ATTEND Internal Medicine Cardiovascular Disease
PROC: 4A023N7 Measurement of Cardiac Sampling and Pressure, Left Heart, Percutaneous Approach (ICD-10-PCS; 2017-10-31)
PROC: B2111ZZ Fluoroscopy of Multiple Coronary Arteries using Low Osmolar Contrast (ICD-10-PCS; 2017-10-31)
PROC: 02100Z9 Bypass Coronary Artery, One Artery from Left Internal Mammary, Open Approach (ICD-10-PCS; principal; 2017-11-02)
PROC: 021109W Bypass Coronary Artery, Two Arteries from Aorta with Autologous Venous Tissue, Open Approach (ICD-10-PCS; 2017-11-02)
PROC: 06BQ4ZZ Excision of Left Saphenous Vein, Percutaneous Endoscopic Approach (ICD-10-PCS; 2017-11-02)
PROC: 5A1221Z Performance of Cardiac Output, Continuous (ICD-10-PCS; 2017-11-02)
PROC: 3E053XZ Introduction of Vasopressor into Peripheral Artery, Percutaneous Approach (ICD-10-PCS; 2017-11-04)
PROC: 0BH17EZ Insertion of Endotracheal Airway into Trachea, Via Natural or Artificial Opening (ICD-10-PCS; 2017-11-04)
PROC: 30233N1 Transfusion of Nonautologous Red Blood Cells into Peripheral Vein, Percutaneous Approach (ICD-10-PCS; 2017-11-04)
PROC: 04HY32Z Insertion of Monitoring Device into Lower Artery, Percutaneous Approach (ICD-10-PCS; 2017-11-09)
DX: I21.09 ST elevation (STEMI) myocardial infarction involving other coronary artery of anterior wall (principal); N18.6 End stage renal disease; J96.01 Acute respiratory failure with hypoxia; I50.23 Acute on chronic systolic (congestive) heart failure; E27.40 Unspecified adrenocortical insufficiency; E87.2 Acidosis; Z94.0 Kidney transplant status; I97.190 Other postprocedural cardiac functional disturbances following cardiac surgery; I13.2 Hypertensive heart and chronic kidney disease with heart failure and with stage 5 chronic kidney disease, or end stage renal disease; N25.81 Secondary hyperparathyroidism of renal origin; E78.00 Pure hypercholesterolemia, unspecified; E11.22 Type 2 diabetes mellitus with diabetic chronic kidney disease; Z87.891 Personal history of nicotine dependence; I25.10 Atherosclerotic heart disease of native coronary artery without angina pectoris; I46.9 Cardiac arrest, cause unspecified; H54.8 Legal blindness, as defined in USA; I50.9 Heart failure, unspecified; E87.5 Hyperkalemia; I34.0 Nonrheumatic mitral (valve) insufficiency; E66.9 Obesity, unspecified; K21.9 Gastro-esophageal reflux disease without esophagitis; D63.1 Anemia in chronic kidney disease; E11.319 Type 2 diabetes mellitus with unspecified diabetic retinopathy without macular edema; E87.6 Hypokalemia; R00.1 Bradycardia, unspecified; I48.91 Unspecified atrial fibrillation; Y83.2 Surgical operation with anastomosis, bypass or graft as the cause of abnormal reaction of the patient, or of later complication, without mention of misadventure at the time of the procedure; I25.2 Old myocardial infarction; I25.5 Ischemic cardiomyopathy; D69.6 Thrombocytopenia, unspecified
CPT/HCPCS: 36415; 36416; 36430; 71045; 76775; 80048; 80053; 80061; 80162; 82542; 82550; 82553; 82805; 83690; 83735; 84100; 84484; 85007; 85014; 85018; 85025; 85027; 85049; 85347; 85610; 85730; 86850; 86900; 86901; 87340; 90935; 92950; 93005; 93010; 93306; 93454; 94002; 94003; 94150; 94760; 99152; A4216; C1769; G0257; J0171; J0282; J0330; J0690; J1160; J1644; J1720; J1815; J2001; J2150; J2250; J2270; J2405; J2440; J2550; J2704; J2720; J2765; J3010; J3370; J3475; J3480; J7050; J7070; J7515; J7517; P9016; P9045; P9047; Q0162; Q4081; S0017; S0028